=== PATIENT | female | born 1945 | race Caucasian/White ===

== ENCOUNTER 2017-10-16 14:49 | Outpatient (CLI) | payer MEDICARE, BC | END 2017-10-16 14:50 | disposition home or self-care (01) | LOC: BICULT 14:49 | PROVIDERS: ATTEND Internal Medicine Infectious Disease | DX: N39.0 Urinary tract infection, site not specified (principal) | CPT/HCPCS: 76770 ==

== ENCOUNTER 2017-11-21 13:21 | Inpatient (IN) | payer MEDICARE, BC ==
[2017-11-21] MEDS ORDERED: Iopamidol 370 76% 100 ML VIAL ONE (13:48)
--- NOTE | 2017-11-21 14:20 | RAD ---
PORTABLE CHEST: HISTORY: Cough. FINDINGS: Heart size is within normal limits. There are atherosclerotic changes of the aorta. There has been resection of both humeral heads. The partially visualized distal left humerus shows what appear to b e some changes that are incompletely visualized in this area. No signs of failure or infiltrate. IMPRESSION: 1. No active intrathoracic disease. 2. Diffuse bony demineralization. POS: [facility]
[2017-11-21 14:27] LABS: #Lymphocytes 0.2 thou/uL (1.20-3.40); #Monocytes 0.1 thou/uL (0.11-0.59); #Neutrophils 3.9 thou/uL (1.40-6.50); %Basophils 0.5 % (0.0-1.0); %Eosinophils 0.2 % (0.0-10.0); %Lymphocytes 4.4 % (21.0-51.0); %Neutrophils 92.9 % (42.0-75.0); Hemoglobin 12.2 g/dL (12.0-16.0); Mean Corpuscular HGB CONC 32.5 g/dL (32.0-36.0); Mean Corpuscular Hemoglobin 30.8 pg (27.0-31.0); Mean Corpuscular Volume 94.7 fl (81.0-99.0); Mean Platelet Volume 7.5 fL (7.4-10.4); Platelet Count 195 thou/uL (130-400); RBC Distribution Width 13.6 % (11.5-14.5); Red Blood Cell (RBC) Count 3.98 mill/uL (4.20-5.40); White Blood Cell (WBC) Count 4.2 thou/uL (4.8-10.8)
[2017-11-21 14:41] LABS: ALT (SGPT) 160 U/L (8-55); AST (SGOT) 296 U/L (5-34); Albumin 4.1 g/dL (3.4-4.8); Alkaline Phosphatase 238 U/L (40-150); Anion Gap 20 mmol/L (10-20); BUN (Urea Nitrogen) 32 mg/dL (9.8-20.1); Bilirubin, Total 0.5 mg/dL (0.2-1.2); Calc. Creatinine Clearance 0 mL/min (70-130); Calcium 10.5 mg/dL (7.8-10.44); Carbon Dioxide 20 mmol/L (23-31); Chloride 105 mmol/L (98-107); Estimated GFR-MDRD 78; Globulin 3.3 g/dL (2.4-3.5); Glucose 120 mg/dL (83-110); Lipase 15 U/L (8-78); Potassium 4.4 mmol/L (3.5-5.1); Protein, Total 7.4 g/dL (6.0-8.3); Sodium 141 mmol/L (136-145)
[2017-11-21] MEDS ORDERED: Morphine 10 MG/ML VIAL ONE ×2 (15:04→17:03)
--- NOTE | 2017-11-21 15:44 | CT ---
CT ABDOMEN AND PELVIS WITH IV CONTRAST: INDICATIONS: History of weakness and pain all over with a history of rheumatoid arthritis, a decreased appetite, a low grade temperature, and nausea. COMPARISON: Prior exam dated 03/14/2016. FINDINGS: There is mild left basilar atelectasis. No focal hepatic lesion is evident. There is slight prominence of the intrahepatic and extrahepatic biliary ductal system, which is stabl e, without a visible stone. There is a duodenal diverticula seen within the second stage of the duod enum, adjacent to the ampulla of Vater. The visualized aspects of the pancreas demonstrate prominent fatty replacement. This is stable to the prior exam. No pathologically enlarged lymph nodes are ev ident. The adrenal glands appear within normal limits. The kidneys are normal appearing. The splee n is normal appearing. The appendix is normal in the right lower quadrant. Beam scattering artifact from bilateral total hi p replacements slightly limits image detail of the lower pelvis. The visualized aspects of the colon and small bowel appear within normal limits. There are a few sca ttered diverticula involving the colon. There is diffuse osteopenia. There are stable compression abnormalities involving L2 and L3. No acu te osseous abnormality is evident. IMPRESSION: 1. No definite CT explanation for the patient's weakness and abdominal pain. 2. Stable mild intrahepatic and extrahepatic biliary ductal dilatation. No definite stone is eviden t within the dilated common bile duct; however, there is a mildly prominent diverticula seen within t he second stage of the duodenum, adjacent to the ampulla of Vater, which can cause mass effect and ob struct the ampulla. I would recommend correlation with the patient's liver functions and symptoms. A gastroenterology consultation may be helpful. 3. Other details as described above. POS: [facility]
[2017-11-21 15:52] LABS: Troponin I 0.066 ng/mL (< 0.028)
[2017-11-21 15:55] LABS: CKMB 8.2 ng/mL (0-6.6)
[2017-11-21 15:56] LABS: Bilirubin Negative (Negative); Blood, Urine Trace (Negative); Clarity Hazy (Clear); Glucose, Urine (Dipstick) Negative (Negative); Leukocyte Small (Negative); Nitrite Positive (Negative); Protein, Urine (Dipstick) 30 mg/dL (Neg-Trace); Urobilinogen 0.2 mg/dL (0.2-1.0)
[2017-11-21 15:57] LABS: Bacteria/HPF 3+ HPF (None Seen); RBC/HPF 0-3 HPF (0-3)
--- NOTE | 2017-11-21 16:54 | ULT ---
GALLBLADDER ULTRASOUND: HISTORY: Right upper quadrant pain. COMPARISON: CT examination done earlier today. Real-time imaging of the right upper quadrant shows gallbladder slightly contracted. There is mild g allbladder wall thickening and the gallbladder wall measures in the 4 mm range. The common bile duct is dilated at 1.1 cm with some slight intrahepatic ductal dilatation. The visualized liver parenchy ma is unremarkable. The liver measures 15 cm in length. The right kidney is 8 cm and is not obstructed. The pancreas region is partially obscured. IMPRESSION: Suggestion of some mild gallbladder thickening without evidence of gallstones. The extrahepatic duct is dilated at 1.1 cm with perhaps some minimal intrahepatic ductal dilatation seen. The technologis t reports a negative ultrasound Berry's sign. If indicated, gallbladder could be further evaluated with hepatobiliary scan. POS: [facility]
[2017-11-21] MEDS ORDERED: Gentamicin 80 MG/2 ML VIAL ONE (17:10)
[2017-11-21] MEDS ORDERED: Ketorolac Tromethamine 30 MG/ML VIAL ONE (17:27)
[2017-11-21 18:17] LABS: Troponin I 0.073 ng/mL (< 0.028)
[2017-11-21 20:57] LABS: Troponin I 0.078 ng/mL (< 0.028)
[2017-11-21] MEDS ORDERED: Sodium Chloride 0.9% 1,000 ML IV SCH (20:58)
[2017-11-21] MEDS ORDERED: Ondansetron ODT 4 MG TAB PO PRN (22:32)
[2017-11-21] MEDS ORDERED: Ondansetron HCl/PF 4 MG/2 ML Vial IVP PRN (22:32)
[2017-11-21] MEDS ORDERED: ALPRAZolam 0.25 MG TAB PO PRN (22:33)
[2017-11-21] MEDS: HYDROcodone/Acetaminophen 10/325 mg Tablet PO PRN (22:55)
[2017-11-22] MEDS: HYDROcodone/Acetaminophen 10/325 mg Tablet PO PRN ×2 (03:13→20:13)
[2017-11-22] MEDS ORDERED: Ondansetron HCl/PF 4 MG/2 ML Vial IVP PRN (04:43)
[2017-11-22] MEDS ORDERED: Senokot 8.6 MG TAB PO PRN (04:43)
[2017-11-22] MEDS ORDERED: Nitroglycerin 0.4 MG TAB (25 Tab Bottle) PO PRN (04:43)
[2017-11-22] MEDS ORDERED: Ondansetron ODT 4 MG TAB PO PRN (04:43)
[2017-11-22] MEDS ORDERED: Calcium Carbonate 500 MG ChewTAB PO PRN (04:43)
--- NOTE | 2017-11-22 05:17 | HP ---
DATE OF ADMISSION: 11/21/2017 The patient was seen and examined on 11/21/2017. PRIMARY CARE PHYSICIAN: Dr. Munoz. CHIEF COMPLAINT: Generalized weakness. HISTORY OF PRESENT ILLNESS: Patient is a 72-year-old female with advanced rheumatoid arthritis with deformities, presented to the emergency room with generalized weakness. Patient has recently seen Dr Lien Guthrie and was on antibiotics. The last dose of antibiotic was approximately 2 weeks ago. Patient has generalized weakness along with nausea and abdominal discomfort that has been going on fo r the last 5-6 days. She lost her appetite. She also had low grade temperature. She also has a his tory of frequent urinary tract infections. She had intermittent chills; however, denies any fever. No recent travel reported. No significant abdominal discomfort reported. She denies any cough, shor tness of breath or wheezing. In the emergency room, her initial vital signs showed temperature 98.7, respiration of 18, pulse rate of 75 with blood pressure of 93/48 that improved to 124/55. O2 saturation was 95% on room air. She received Toradol, gentamicin, morphine, aspirin, and IV fluids in the emergency room. PAST MEDICAL HISTORY: 1. Advanced rheumatoid arthritis with deformities. 2. Cervical radiculopathy. 3. Dyslipidemia. 4. Urinary incontinence. 5. Hearing loss. PAST SURGICAL HISTORY: 1. Several orthopedic surgeries. 2. Cervical laminectomy. 3. Hematoma evacuation in 2016. ALLERGIES: Patient is allergic to KEFLEX. CURRENT HOME MEDICATIONS: Family to bring accurate list of medications. Patient is currently on pre dnisone 2.5 mg daily. SOCIAL HISTORY: Patient currently lives at home. No alcohol, tobacco or drug use. She makes her ow n decision. She is FULL CODE. FAMILY HISTORY: Mother with irregular heartbeat. Father with lung disease. REVIEW OF SYSTEMS: The following complete review of systems was negative, unless otherwise mentioned in the HPI or below: Constitutional: Weight loss or gain, ability to conduct usual activities. Skin: Rash, itching. Eyes: Double vision, pain. ENT/Mouth: Nose bleeding, neck stiffness, pain, tenderness. Cardiovascular: Palpitations, dyspnea on exertion, orthopnea. Respiratory: Shortness of breath, wheezing, cough, hemoptysis, fever or night sweats. Gastrointestinal: Poor appetite, abdominal pain, heartburn, nausea, vomiting, constipation, or diarr hea. Genitourinary: Urgency, frequency, dysuria, nocturia. Musculoskeletal: Pain, swelling. Neurologic/Psychiatric: Anxiety, depression. Allergy/Immunologic: Skin rash, bleeding tendency. PHYSICAL EXAMINATION: VITAL SIGNS: As discussed above. GENERAL: A 72-year-old female in no significant distress. HEENT: Head atraumatic, normocephalic. Sclerae are anicteric. Moist mucous membranes. No oral les ion. NECK: Supple, no JVD appreciated. No carotid bruit. LUNGS: Clear to auscultation bilaterally. HEART: S1, S2 present. Regular rate and rhythm. No murmur, rubs, or gallops appreciated. ABDOMEN: Soft, minimal tenderness over the suprapubic region, no rebound, guarding, no costovertebra l angle tenderness. EXTREMITIES: No edema or calf tenderness. The patient has chronic deformities from rheumatoid arthr itis. SKIN: Warm and dry. LYMPH NODES: No palpable lymph nodes in the neck. PERIPHERAL VASCULAR: Radial pulses palpable bilaterally. MUSCULOSKELETAL: No joint swelling or tenderness. LYMPH NODES: No palpable lymph nodes in the neck. LABORATORY AND X-RAY FINDINGS: 1. CBC showed WBC 4.2 with hemoglobin 12.2. 2. BUN 32, creatinine 0.73. 3. Total bilirubin 0.5 with AST of 296, ALT of 160. Alkaline phosphatase of 238. Troponin of 0.066 . CK-MB 8.2. Lactic acid was normal. Thyroid studies were normal. Urinalysis showed 7-10 wbc's wi th 3+ bacteria. EKG by my review showed sinus rhythm with right bundle branch block. Chest x-ray by my review was negative for infiltrate. Abdominal ultrasound showed biliary dilatation with extrahepatic duct of 1.1 cm diameter. Berry sig n was negative. CT scan of the abdomen and pelvis showed mild intrahepatic and extrahepatic biliary ductal dilatation without any definite stone. IMPRESSION: 1. Generalized weakness with nausea, abdominal discomfort and poor appetite, multifactorial. 2. Abnormal liver function tests of unclear etiology. The patient has extrahepatic and intrahepatic biliary ductal dilatation. 3. Suspected urinary tract infection. 4. Severe rheumatoid arthritis with deformities on chronic steroids. 5. Chronically elevated troponins. 6. Chronic kidney disease stage 2. 7. Chronic urinary incontinence. 8. Hearing loss. 9. Cervical radiculopathy. 10. Dyslipidemia. PLAN: The patient is currently admitted on the telemetry unit. Infectious Disease and GI will be co nsulted. The patient will be kept n.p.o. except for ice chips and sips of water. Empiric antibiotic s for UTI will be started. We will hold Tylenol due to abnormal liver function tests. Gentle intrav enous hydration. Resume selected home medications once confirmed. A.m. labs. Plan of care was discussed with the patient in detail. She stated understanding.
[2017-11-22] MEDS: Sodium Chloride 0.9% 1,000 ML IV SCH ×2 (05:35→09:00)
[2017-11-22] MEDS ORDERED: predniSONE 5 MG TAB PO SCH (08:00)
[2017-11-22] MEDS: TROSPIUM 20 MG TABLET PO SCH ×2 (08:57→20:14)
[2017-11-22] MEDS: Docusate 100 MG CAP PO SCH ×2 (08:57→20:13)
[2017-11-22] MEDS: Heparin 5,000 UNITS/ML VIAL SC SCH ×2 (08:57→20:12)
[2017-11-22] MEDS: Multivit, Therapeutic 1 TAB PO SCH (08:57)
[2017-11-22] MEDS: Famotidine 20 MG TAB PO SCH ×2 (08:57→20:14)
--- NOTE | 2017-11-22 14:17 | PDOC.PN ---
- Subjective Encounter Start Date: 11/22/17 Encounter Start Time: 14:10 Subjective: f/u for generalized weakness, UTI with Proteus spp. Feels weak and tired -: and sleeping most of the day. - Objective Resuscitation Status: Resuscitation Status FULL:Full Resuscitation MAR Reviewed: Yes Vital Signs & Weight: Vital Signs (12 hours) Temp Pulse Resp BP Pulse Ox 11/22/17 12:19 99.8 F H 84 16 103/51 L 93 L 11/22/17 07:47 99.0 F 85 16 125/58 L 98 11/22/17 04:43 92 L 11/22/17 04:00 98.7 F 80 18 117/57 L 92 L Weight Admit Weight 95 lb 1.6 oz Weight 97 lb I&O: 11/21/17 11/22/17 11/23/17 06:59 06:59 07:59 Intake Total 970 Balance 970 Result Diagrams: 11/21/17 14:17 11/21/17 14:17 Additional Labs: Microbiology 11/21/17 15:41 Urine Straight Catheter Urine Culture - Preliminary Proteus species Laboratory Tests 11/21/17 11/21/17 11/21/17 14:17 14:17 14:32 Lactic Acid 1.4 AST 296 H ALT 160 H Alkaline Phosphatase 238 H Troponin I 0.066 H Lipase 15 11/21/17 11/21/17 17:45 20:19 Lactic Acid AST ALT Alkaline Phosphatase Troponin I 0.073 H 0.078 H Lipase Radiology Reviewed by me: Yes (CT abd/pel - extra/intrahepatic biliary diliation ) EKG Reviewed by me: Yes (Tele - SR in 80's) Phys Exam - Physical Examination sleepy, answers questions, tired appearing HEENT: PERRLA, oral pharynx no lesions Neck: no JVD, supple Respiratory: no wheezing, clear to auscultation bilateral Cardiovascular: RRR Gastrointestinal: soft, non-tender, no distention, positive bowel sounds severe joint deformities consistent with RA Musculoskeletal: no edema, pulses present Neurological: normal sensation, moves all 4 limbs Psychiatric: A&O x 3 Skin: normal turgor, cap refill <2 seconds Dx/Plan (1) Urinary tract infection due to Proteus Code(s): N39.0 - URINARY TRACT INFECTION, SITE NOT SPECIFIED; B96.4 - PROTEUS ( MIRABILIS) (MORGANII) CAUSING DIS CLASSD ELSWHR Status: Acute Comment: Start Levaquin 500mg IV daily, await final sensitivities from Ucx (2) Generalized weakness Code(s): R53.1 - WEAKNESS Status: Chronic Comment: Likely multifactorial including #1, PT/OT evaluation (3) Physical deconditioning Code(s): R53.81 - OTHER MALAISE Status: Chronic Comment: See above (4) Rheumatoid arthritis Code(s): M06.9 - RHEUMATOID ARTHRITIS, UNSPECIFIED Status: Chronic Qualifiers: Laterality: bilateral Comment: Continue Prednisone, Plaquenil (5) Transaminitis Code(s): R74.0 - NONSPEC ELEV OF LEVELS OF TRANSAMNS & LACTIC ACID DEHYDRGNSE Status: Acute Comment: Etiology unclear, CT abd/pel unrevealing as to source, serial monitoring, GI consulted, ? ERCP - Plan continue antibiotics, PT/OT, child welfare social worker, out of bed/ambulate, DVT proph w/ SCDs Stable overall -: Start Zosyn 2.25gm IV q6h -: Resume Plaquenil -: PT for mobilization and functional assessment -: AM lab: CMP, CBC, Mg++, PO3, Lipase * Solumedrol 20mg IV q6h
[2017-11-22] MEDS: Piperacillin/Tazobactam 2.25 GM in Sodium Chloride 0.9% 100 ML IVPB SCH (16:48)
[2017-11-22 17:51] LABS: Acetaminophen Less than 6.0 mcg/mL (10.0-30.0)
--- NOTE | 2017-11-22 19:21 | CON ---
DATE OF CONSULTATION: 11/22/2017 REASON FOR CONSULTATION: Abdominal pain, nausea, diarrhea and body aches. HISTORY OF PRESENT ILLNESS: A 72-year-old patient who has a history of severe rheumatoid arthritis, previously on prednisone, Plaquenil and tramadol whom I have seen in the past for recurrent urinary tract infections/cystitis. I have treated her in the past and it was not very clear to me that the symptoms are truly related to an invasive UTI, although she did have dysuria from time to time. We had discussed measures to try to prevent the recurrence of cystitis in the past. She had completed a course of ampicillin in October. She had been in her usual state with quite a bit of functional impairment because of her multiple areas of joint deformities associated with severe rheumatoid arthritis, but otherwise in her usual state until about a week before today or approximately 5-6 days before admission when she developed diarrhea and general malaise. She also has been complaining of pain in the knee area, left side, left elbow and had been taken Tylenol for management of pain. She usually takes extra strength Tylenol 2 capsules or tablets every 6 hours sometimes or sometimes more often than that. She was brought to the emergency room with general weakness, some headaches. No visual symptoms, sore throat, odynophagia , or dysphagia. Vomiting has subsided. No bleeding. Some sputum, but no production. She has abdominal pain, mostly in the mid abdominal area. No dysuria or frequency. No neurological symptoms. PAST MEDICAL AND SURGICAL HISTORY: Rheumatoid arthritis, which is severe with multiple areas of deformities, multiple joint replacements, radiculopathy, dyslipidemia, urinary incontinence, history of urinary tract infections with cystitis in the past. ALLERGIES: KEFLEX with rash. CURRENT MEDICATIONS LIST: Acetaminophen, Floranex, Xanax, calcium, vitamin D, Colace, Pepcid, Plaquenil, Solu-Medrol, ondansetron and Zosyn. SOCIAL HISTORY: Lives with , never smoker. FAMILY HISTORY: Noncontributory. PHYSICAL EXAMINATION: VITAL SIGNS: T-max 100.5 just recently, blood pressure 120/70, pulse 85, respirations 16 and O2 sat 95%. SKIN: With a small area of ulceration in the presacral region. Peripheral IV access. No Schaeffer catheter. No lymphadenopathy. HEENT: Ocular movements conjugate. Oral cavity with still quite a few teeth in place with some decay. Moist mucosa. NECK: Stiff neck to all directions from previous cervical surgeries. LUNGS: She has symmetric lung breath sounds. No crackles or wheezing. HEART: S1 and S2, regular rate. No S3 or S4. ABDOMEN: Not distended. Mild to moderate tenderness in the epigastric area and right upper quadrant and periumbilical region. No bladder distention. EXTREMITIES: She has multiple joint deformities, weakness in upper and lower extremities. The finger deformities are very pronounced. She pretty much does not have any function with the hands. The knees have been replaced in the past and she has tenderness in the left side. The feet are quite severely deformed as well. There is quite pronounced atrophy of musculature both upper and lower extremities. NEUROLOGIC: She has hearing impairments, but she is able to understand. She is oriented and follows commands. LABORATORY DATA: White blood cell count is 4.2, hemoglobin is 12, platelets 195 and 92% neutrophils. Sodium 141, creatinine 0.73, glucose 120, AST 296, ALT 160 and alkaline phosphatase 238. Troponin 0.066 and then was 0.073 and albumin 4.1. Urinalysis with 7-10 wbc's and 30 protein. Microbiology with Proteus species, which is similar to the one she has had in 09/30. IMAGING STUDIES: Included abdomen and pelvis CT from 11/21, which showed a slight prominence of the intrahepatic and extrahepatic biliary ductal system, duodenal diverticula seen within the second stage of the duodenum, diffuse osteopenia. There is an abdomen ultrasound, which showed mild gallbladder thickening. No gallstones. The extrahepatic duct is dilated to 1.1 cm and there is a chest x-ray from admission with no active intrathoracic disease. ASSESSMENT: 1. Severe rheumatoid arthritis. 2. Recurrent positive cultures, mostly associated with symptoms of cystitis, urethritis in the past. 3. Diarrhea, associated with vomiting and abdominal tenderness in the mid abdominal area, right upper quadrant. 4. Abnormal liver function tests. 5. Chronic intake of acetaminophen in fairly high doses. 6. Mild dilatation of the biliary ducts. DISCUSSION: The differential diagnosis includes acetaminophen associated hepatotoxicity, which in her case would be more of a chronic type. She has been taken up to 5 or 6 grams consistently on a daily basis and she is quite small for her body mass. This could potentially be a hepatotoxic chronic dosing of acetaminophen. The other possibility would be transient biliary obstructions as mentioned in the radiologist interpretation. Acute cholecystitis is much less likely. Finally, an invasive urinary tract infection is less likely the culprit here and I would recommend discontinuation of antimicrobial therapy. I certainly would withhold all products containing acetaminophen at this point in time and check her acetaminophen levels and evaluate according to the nomogram. Check hepatitis serology, but that is probably going to turned out negative. MTDD
[2017-11-22] MEDS: Ibuprofen 200 MG TAB PO PRN (20:12)
[2017-11-22] MEDS: ALPRAZolam 0.25 MG TAB PO PRN (20:13)
[2017-11-22] MEDS ORDERED: Non-Formulary Item 1 EACH (Biotin [Biotin] 5,000 MCG) PO SCH (21:00)
[2017-11-22] MEDS ORDERED: BIOTIN 5000 MCG PO SCH (21:00)
[2017-11-23] MEDS: Sodium Chloride 0.9% 1,000 ML IV SCH ×2 (00:29→11:51)
[2017-11-23] MEDS: Piperacillin/Tazobactam 2.25 GM in Sodium Chloride 0.9% 100 ML IVPB SCH ×2 (00:29→10:01)
--- NOTE | 2017-11-23 00:55 | CON ---
DATE OF CONSULTATION: 11/22/2017 REFERRING PHYSICIAN: Dr. Maged Riley. REASON FOR CONSULTATION: Abnormal LFTs, vague abdominal pain. HISTORY OF PRESENT ILLNESS: Ms. Ayde Jauregui is a very fragile looking, thin-built female hospitalized with generalized weakness, chills off and on over the last several days, and also histor y of diarrhea. The patient came to the ER and was found to have abnormal LFTs on admission. The pat ient was getting some vague abdominal pain off and on. Although, she has a history of chills, she puri s had no fever. The patient had seen Dr. Francisco Guthrie in 09/2017 and also 10/2017. She was found t o have urinary tract infection and was given 30 days of antibiotics. She finished taking her antibio tics on 11/08. The patient has been feeling poorly over the last probably about several days. She c omplains of generalized weakness and nausea and some vague abdominal discomfort. The abdominal pain is actually mild to moderate. It is not severe. Today, she is feeling better. She also had diarrhe a for a couple of days. The diarrhea has quit now. On admission, the patient was found to have elev ated liver function tests. The AST is 296, ALT 160, alkaline phosphatase is 238. She had abdominal sonogram and abdominal CAT scan. The abdominal sonogram shows no gallstones and does show dilation o f the CBD to about 1.1 cm. Abdominal CAT scan also showed dilation of the common bile duct without a ny pancreatic mass or any filling defect in the common bile duct. There is mention of a duodenal div erticulum on review of the ampulla on CAT scan. The patient had seen Dr. Mcfarlane in the past and also has seen Dr. Harrison in the past. When she was hospitalized in 2016, she was seen by Dr. Mcfarlane to co nfirm pancreatitis. The workup for the etiology of the pancreatitis is unclear. She had an abdomina l sonogram, which is negative for gallstones. She had an abdominal CAT scan, which is negative. She also had an MRI, which was negative for any pathology. There is no common bile duct stone. As per Dr. Mcfarlane' note, there is a mention of getting an outpatient endosonography. Her regular gastroente rologist is Dr. Debora Harrison, and Dr. Harrison sent her to [place] for evaluation. However, the doctor who saw her in [place] did not recommend an endosonography. She was told that she could have ischem ic bowel. At that time, she was having persistent diarrhea and was placed on Imodium 2.5 mg twice a day. On Imodium, her diarrhea actually stopped and she started eating better and gained her weight b ack. The pain what she is having is not as bad as she had pancreatitis. She says the pain was very severe during pancreatitis, but this pain is actually mild. Since admission, the patient has had no stool. She also has past history of C. diff diarrhea, I believe in 2014, as per the patient. She puri s no relevant history. ALLERGIES: KEFLEX. MEDICAL ILLNESSES: 1. Advanced rheumatoid arthritis deformities. 2. Cervical radiculopathy. 3. Hyperlipidemia. 4. Urinary incontinence. 5. Hearing loss. 6. Clostridium difficile diarrhea, I believe, 2-3 years ago. 7. History of pancreatitis of unknown etiology in 2016. 8. History of recurrent urinary tract infection. PAST SURGICAL HISTORY: 1. History of cervical laminectomy. 2. Hematoma evacuation in the leg. 3. Several orthopedic surgeries. MEDICATIONS: Include hydrocodone, Xanax, calcium carbonate, vitamin D3, docusate, famotidine, Plaque nil, methylprednisolone at the present time in the hospital, piperacillin in the hospital. SOCIAL HISTORY: The patient is alone. She does not smoke or drink alcohol. FAMILY HISTORY: Mother with heart disease, father with lung disease. REVIEW OF SYSTEMS: A 10-point system review. Constitutional: Poor appetite. History of chills off and on, generalized weakness. Respiratory: No history of chronic cough, hemoptysis, dyspnea. Card iovascular: No chest pain, no palpitation, no dyspnea or orthopnea. Gastrointestinal: History of a bdominal pain, poor appetite, nausea, and also diarrhea, which has resolved. Genitourinary: No dysu rosalinda, hematuria. Musculoskeletal: Diffuse body pains and also back pain and arthralgias. Neuropsych iatric: History of anxiety and depression. PHYSICAL EXAMINATION: GENERAL: Reveals a fragile looking, thin-built white female, who appears very comfortable, but she i s kind of drowsy and sleepy. However, she says she is hungry and she wants to eat. VITAL SIGNS: Afebrile on admission 99.8 degrees Fahrenheit. Today, the temperature 99.8 degrees Fah renheit, pulse is 84, blood pressure is 103/57. HEENT: Conjunctivae clear. NECK: Supple. No adenitis or thyromegaly noted. CARDIOVASCULAR: First and second heart sounds normal. LUNGS: Clear to auscultation. ABDOMEN: Abdomen is soft. Abdomen is nondistended. Abdomen is mildly tender over the . There is no rebound or guarding. No organomegaly or masses. EXTREMITIES: Reveal deformities of both upper extremities and also foot. LABORATORY DATA: Sodium 141, potassium 4.4, chloride 105, bicarbonate 20, BUN is 32, creatinine 0.73 , glucose 120, calcium 10.5, bilirubin 0.5, AST 296, ALT 160, alkaline phosphatase 238. CPK-MB 8.2. Troponin 0.066. An abdominal sonogram shows dilation of CBD and also same thing with the CAT scan. There are no liver masses seen. There are no definite filling defects in the common bile duct. CLINICAL IMPRESSION: A 72-year-old female with longstanding rheumatoid arthritis, on Plaqu enil and prednisone who comes in with generalized weakness, poor appetite, vague abdominal pain, naus ea, and also diarrhea. Her diarrhea is resolved at the present time. Her nausea is also markedly im proved. Her abdominal pain is very mild and is poorly localized. The abdominal exam is very benign. Workup has been negative. The sonogram shows no gallstones and also CT scan shows no gallstones. Does show dilation of CBD. No pancreatic mass seen. Her liver function tests are elevated to AST of 296, alkaline phosphatase is 238. Possibilities include infectious pathology to account for the alok sea, vague abdominal pain, diarrhea, and also poor appetite. Had abnormal LFTs, which are unclear as workup has been basically negative. Possibilities considered include drug induced liver disease and possibly she passed a common bile duct stone, which could account for dilation of CBD and also eleva jeramy LFTs. RECOMMENDATIONS: As follows, 1. Regular diet. 2. Repeat LFTs to see how the trend is. If the LFTs is going up, I believe probably she will need a n ERCP. She has a very short neck and also her neck movement is very limited. I am not sure if ERCP would be possible. She also has a duodenal diverticulum, which makes the ERCP more technically diff icult. Regular diet. Follow LFTs. If LFTs are trending down, no further need for ERCP. If the LFTs is goi ng up, we may consider endosonography and possibly ERCP. Dr. Mcfarlane has seen the patient before and he will assume care from Friday.
[2017-11-23] MEDS: HYDROcodone/Acetaminophen 10/325 mg Tablet PO PRN ×2 (05:29→20:56)
[2017-11-23 05:42] LABS: #Lymphocytes 0.4 thou/uL (1.20-3.40); #Monocytes 0.1 thou/uL (0.11-0.59); #Neutrophils 2.6 thou/uL (1.40-6.50); %Basophils 1.1 % (0.0-1.0); %Eosinophils 0.2 % (0.0-10.0); %Lymphocytes 13.6 % (21.0-51.0); %Monocytes 3.9 % (0.0-10.0); %Neutrophils 81.3 % (42.0-75.0); Mean Corpuscular HGB CONC 32.4 g/dL (32.0-36.0); Mean Corpuscular Hemoglobin 32.4 pg (27.0-31.0); Mean Platelet Volume 7.8 fL (7.4-10.4); Platelet Count 179 thou/uL (130-400); RBC Distribution Width 13.1 % (11.5-14.5); Red Blood Cell (RBC) Count 3.09 mill/uL (4.20-5.40); White Blood Cell (WBC) Count 3.2 thou/uL (4.8-10.8)
[2017-11-23 05:50] LABS: ALT (SGPT) 124 U/L (8-55); AST (SGOT) 223 U/L (5-34); Albumin 2.7 g/dL (3.4-4.8); Alkaline Phosphatase 525 U/L (40-150); Anion Gap 14 mmol/L (10-20); BUN (Urea Nitrogen) 22 mg/dL (9.8-20.1); Bilirubin, Total 0.7 mg/dL (0.2-1.2); Calc. Creatinine Clearance 65 mL/min (70-130); Calcium 7.8 mg/dL (7.8-10.44); Carbon Dioxide 16 mmol/L (23-31); Chloride 109 mmol/L (98-107); Estimated GFR-MDRD Greater than 90; Globulin 2.2 g/dL (2.4-3.5); Glucose 98 mg/dL (83-110); Lipase 5 U/L (8-78); Magnesium 1.4 mg/dL (1.6-2.6); Potassium 4.4 mmol/L (3.5-5.1); Protein, Total 4.9 g/dL (6.0-8.3); Sodium 135 mmol/L (136-145)
[2017-11-23 05:52] LABS: ALT (SGPT) 125 U/L (8-55); AST (SGOT) 225 U/L (5-34); Albumin 2.7 g/dL (3.4-4.8); Alkaline Phosphatase 521 U/L (40-150); Bilirubin, Direct 0.5 mg/dL (0.1-0.3); Bilirubin, Total 0.7 mg/dL (0.2-1.2); Protein, Total 4.9 g/dL (6.0-8.3)
[2017-11-23] MEDS ORDERED: Prevnar 13-Val Conj/PF 0.5 ML SYRINGE IM ONE (09:00)
[2017-11-23] MEDS ORDERED: Non-Formulary Item 1 EACH (Cholecalciferol (Vitamin D3) [Vitamin D3] 5,000 UNIT) PO SCH (09:00)
[2017-11-23] MEDS ORDERED: Non-Formulary Item 1 EACH (Lactobacillus Acidophilus [Probiotic] 1 CAPSULE) PO SCH (09:00)
[2017-11-23] MEDS ORDERED: FLU VACC TS2017-18 (>65YR) 0.5 ML SYRINGE IM ONE (09:00)
[2017-11-23] MEDS: Floranex Packet PO SCH (09:59)
[2017-11-23] MEDS: Multivit, Therapeutic 1 TAB PO SCH (10:01)
[2017-11-23] MEDS: Hydroxychloroquine Sulfate 200 MG TAB PO SCH (10:01)
[2017-11-23] MEDS: Famotidine 20 MG TAB PO SCH ×2 (10:01→20:57)
[2017-11-23] MEDS: Docusate 100 MG CAP PO SCH ×2 (10:01→20:57)
[2017-11-23] MEDS: Heparin 5,000 UNITS/ML VIAL SC SCH ×2 (10:02→21:15)
[2017-11-23] MEDS: TROSPIUM 20 MG TABLET PO SCH ×2 (10:03→20:57)
[2017-11-23] MEDS: Ibuprofen 200 MG TAB PO PRN (11:51)
[2017-11-23] MEDS ORDERED: Lorazepam 2 MG/ML VIAL SLOW IVP SCH (12:15)
--- NOTE | 2017-11-23 13:18 | PRG ---
DATE OF SERVICE: 11/23/2017 FOLLOWUP VISIT NOTE SUBJECTIVE: Ms. Ayde Jauregui is a very pleasant 72-year-old female with longstanding rheum atoid arthritis. She also has generalized body pains and also vague abdominal pain, nausea, and abno rmal LFTs. Abdominal sonogram shows dilation of CBD and also potassium findings. The patient is fee ling better today. She still complains of generalized body pain. Her abdominal pain is less. There is no nausea today. She is tolerating diet well. Her repeat LFTs remain the same, nothing much imani lly has changed. The LFTs are cholestatic. The patient has had pancreatitis two years ago and has h ad a negative abdominal sonogram, negative CAT scan and MRI at that time. PHYSICAL EXAMINATION: GENERAL: Appears comfortable. She is afebrile. VITAL SIGNS: Temperature 98.6 degrees Fahrenheit, but yesterday she had fever of 100.6, pulse is 80, blood pressure 160/95. CARDIOVASCULAR SYSTEM: First and second heart sounds normal. LUNGS: Clear to auscultation. ABDOMEN: Soft to palpate. Abdomen is minimally tender over the epigastric periumbilical area. LABORATORY DATA: Laboratory data from today nothing has really changed in terms of numbers. AST is 225, ALT 125, alkaline phosphatase 521. Bilirubin 0.5. Her serum level has come back normal. RECOMMENDATIONS: 1. Obtain ABY. 2. MRCP today. MRCP did show shows abnormal findings like bile duct stone, may need ERCP.
--- NOTE | 2017-11-23 13:58 | PDOC.PN ---
- Subjective Encounter Start Date: 11/23/17 Encounter Start Time: 13:50 Subjective: f/u for UTI with Proteus spp on Zosyn. Intermittent fever spikes noted. -: LFT's remain elevated with MRCP pending. States feeling better today. -: No emesis. Still weak. - Objective Resuscitation Status: Resuscitation Status FULL:Full Resuscitation MAR Reviewed: Yes Vital Signs & Weight: Vital Signs (12 hours) Temp Pulse Resp BP Pulse Ox 11/23/17 13:00 97.2 F L 78 16 116/56 L 99 11/23/17 07:45 98.6 F 80 16 160/95 H 100 11/23/17 05:37 97.4 F L 81 18 132/63 98 Weight Admit Weight 95 lb 1.6 oz Weight 97 lb I&O: 11/22/17 11/23/17 11/24/17 05:59 06:59 06:59 Intake Total Balance Result Diagrams: 11/23/17 05:06 11/23/17 05:06 Additional Labs: Microbiology 11/21/17 15:41 Urine Straight Catheter Urine Culture - Preliminary Proteus species Laboratory Tests 11/21/17 11/21/17 11/21/17 14:17 14:17 14:32 Lactic Acid 1.4 Total Bilirubin 0.5 AST 296 H ALT 160 H Alkaline Phosphatase 238 H Troponin I 0.066 H Lipase 15 11/21/17 11/21/17 11/23/17 17:45 20:19 05:06 Lactic Acid Total Bilirubin 0.7 AST 223 H ALT 124 H Alkaline Phosphatase 525 H Troponin I 0.073 H 0.078 H Lipase 11/23/17 05:06 Lactic Acid Total Bilirubin 0.7 AST 225 H ALT 125 H Alkaline Phosphatase 521 H Troponin I Lipase Radiology Reviewed by me: Yes (MRI abd - pending) EKG Reviewed by me: Yes (Tele - SR in 's) Phys Exam - Physical Examination Constitutional: NAD HEENT: PERRLA, oral pharynx no lesions Neck: no JVD, supple Respiratory: no wheezing, clear to auscultation bilateral Cardiovascular: RRR mild TTP in mid-epigastric region Gastrointestinal: soft, no distention, positive bowel sounds severe joint deformities consisitent with RA Musculoskeletal: pulses present, edema present Neurological: normal sensation, moves all 4 limbs Psychiatric: A&O x 3 Skin: normal turgor, cap refill <2 seconds Dx/Plan (1) Transaminitis Code(s): R74.0 - NONSPEC ELEV OF LEVELS OF TRANSAMNS & LACTIC ACID DEHYDRGNSE Status: Acute Comment: Etiology unclear, CT abd/pel unrevealing as to source, serial monitoring, GI consulted, ? ERCP, MRI abd pending (2) Urinary tract infection due to Proteus Code(s): N39.0 - URINARY TRACT INFECTION, SITE NOT SPECIFIED; B96.4 - PROTEUS ( MIRABILIS) (MORGANII) CAUSING DIS CLASSD ELSWHR Status: Acute Comment: continue Zosyn 3.375gm IV q6h, continue IVF's (3) Generalized weakness Code(s): R53.1 - WEAKNESS Status: Chronic Comment: Likely multifactorial including #1, PT/OT evaluation (4) Physical deconditioning Code(s): R53.81 - OTHER MALAISE Status: Chronic Comment: See above (5) Rheumatoid arthritis Code(s): M06.9 - RHEUMATOID ARTHRITIS, UNSPECIFIED Status: Chronic Qualifiers: Laterality: bilateral Comment: Continue Prednisone, Plaquenil - Plan plan discussed w/ family, continue antibiotics, DVT proph w/SCDs Stable overall -: Continue Zosyn 3.375gm IV q6h -: Continue IV NS 70ml/h -: continue Solumedrol 20mg IV q6h -: AM lab: CMP, CBC * .
--- NOTE | 2017-11-23 16:47 | MRI ---
MRI ABDOMEN WITHOUT CONTRAST: History: Abnormal liver profile. FINDINGS: Correlation is made with an ultrasound and CT scan of the abdomen dated 11-21-17. The exam is limited due to motion artifact. There is biliary ductal dilatation of the distal common bile duct measuring about 1 cm. There are a c ouple of filling defects in the common bile duct, suspicious for choledocholithiasis. No cholelithias is is seen. There is edema/fluid surrounding the gallbladder. The spleen, pancreas, adrenal gland, an d kidneys are unremarkable. There is fluid in the Lombardi's pouch. The bone marrow signal is normal. There is consolidation/atelectatic change in the lung bases. IMPRESSION: 1. Biliary duct dilatation with probable choledocholithiasis. 2. Findings suspicious for acute cholecystitis. Above findings were discussed over the telephone with Dr. Alka Hodges at 4:13 p.m. Colleen LUNA POS: [facility]
[2017-11-23] MEDS: Piperacillin/Tazobactam 3.375 GM in Sodium Chloride 0.9% 100 ML IVPB SCH (16:52)
[2017-11-23] MEDS: ALPRAZolam 0.25 MG TAB PO PRN (20:56)
[2017-11-24] MEDS: Piperacillin/Tazobactam 3.375 GM in Sodium Chloride 0.9% 100 ML IVPB SCH ×4 (00:33→23:27)
[2017-11-24] MEDS: Sodium Chloride 0.9% 1,000 ML IV SCH ×2 (02:00→08:25)
[2017-11-24] MEDS: HYDROcodone/Acetaminophen 10/325 mg Tablet PO PRN ×5 (05:03→21:59)
[2017-11-24 05:35] LABS: #Lymphocytes 0.7 thou/uL (1.20-3.40); #Monocytes 0.3 thou/uL (0.11-0.59); %Basophils 0.3 % (0.0-1.0); %Eosinophils 0.1 % (0.0-10.0); %Lymphocytes 8.4 % (21.0-51.0); %Monocytes 3.9 % (0.0-10.0); %Neutrophils 87.4 % (42.0-75.0); Mean Corpuscular HGB CONC 31.5 g/dL (32.0-36.0); Mean Corpuscular Hemoglobin 31.1 pg (27.0-31.0); Mean Corpuscular Volume 98.6 fl (81.0-99.0); Mean Platelet Volume 7.4 fL (7.4-10.4); Platelet Count 241 thou/uL (130-400); RBC Distribution Width 13.3 % (11.5-14.5); Red Blood Cell (RBC) Count 3.54 mill/uL (4.20-5.40)
[2017-11-24 06:04] LABS: ALT (SGPT) 130 U/L (8-55); AST (SGOT) 193 U/L (5-34); Alkaline Phosphatase 507 U/L (40-150); Anion Gap 14 mmol/L (10-20); BUN (Urea Nitrogen) 19 mg/dL (9.8-20.1); Bilirubin, Total 0.5 mg/dL (0.2-1.2); Calc. Creatinine Clearance 67 mL/min (70-130); Calcium 8.4 mg/dL (7.8-10.44); Carbon Dioxide 15 mmol/L (23-31); Chloride 110 mmol/L (98-107); Estimated GFR-MDRD Greater than 90; Globulin 2.5 g/dL (2.4-3.5); Glucose 113 mg/dL (83-110); Potassium 4.3 mmol/L (3.5-5.1); Protein, Total 5.5 g/dL (6.0-8.3); Sodium 135 mmol/L (136-145)
[2017-11-24] MEDS: Floranex Packet PO SCH (08:27)
[2017-11-24] MEDS: Heparin 5,000 UNITS/ML VIAL SC SCH ×2 (08:27→21:29)
[2017-11-24] MEDS: Docusate 100 MG CAP PO SCH ×2 (08:28→21:55)
[2017-11-24] MEDS: Hydroxychloroquine Sulfate 200 MG TAB PO SCH (08:28)
[2017-11-24] MEDS: TROSPIUM 20 MG TABLET PO SCH (08:28)
[2017-11-24] MEDS: Multivit, Therapeutic 1 TAB PO SCH (08:28)
[2017-11-24] MEDS: Famotidine 20 MG TAB PO SCH ×2 (08:28→21:55)
--- NOTE | 2017-11-24 08:54 | PDOC.PN ---
- Subjective Encounter Start Date: 11/24/17 Encounter Start Time: 08:52 Subjective: alert, no complaints - Objective Resuscitation Status: Resuscitation Status FULL:Full Resuscitation MAR Reviewed: Yes Vital Signs & Weight: Vital Signs (12 hours) Temp Pulse Resp BP Pulse Ox 11/24/17 06:30 94 L 11/24/17 05:00 98.7 F 97 18 156/74 H 94 L Weight Admit Weight 95 lb 1.6 oz Weight 104 lb 4.8 oz I&O: 11/23/17 11/24/17 11/25/17 06:59 06:59 06:59 Intake Total 1180 Balance 1180 Result Diagrams: 11/24/17 05:26 11/24/17 05:26 Phys Exam - Physical Examination Neck: no JVD Respiratory: clear to auscultation bilateral Cardiovascular: RRR, no significant murmur Gastrointestinal: soft, non-tender, positive bowel sounds Musculoskeletal: edema present Dx/Plan (1) Urinary tract infection due to Proteus Code(s): N39.0 - URINARY TRACT INFECTION, SITE NOT SPECIFIED; B96.4 - PROTEUS ( MIRABILIS) (MORGANII) CAUSING DIS CLASSD ELSWHR Status: Acute Comment: continue Zosyn 3.375gm IV q6h, continue IVF's (2) Nausea & vomiting Code(s): R11.2 - NAUSEA WITH VOMITING, UNSPECIFIED Status: Acute (3) Transaminitis Code(s): R74.0 - NONSPEC ELEV OF LEVELS OF TRANSAMNS & LACTIC ACID DEHYDRGNSE Status: Acute Comment: Etiology unclear, CT abd/pel unrevealing as to source, serial monitoring, GI consulted, ? ERCP, MRI abd pending (4) Adrenal insufficiency Code(s): E27.40 - UNSPECIFIED ADRENOCORTICAL INSUFFICIENCY Status: Chronic (5) Dyslipidemia Code(s): E78.5 - HYPERLIPIDEMIA, UNSPECIFIED Status: Chronic (6) Generalized weakness Code(s): R53.1 - WEAKNESS Status: Chronic Comment: Likely multifactorial including #1, PT/OT evaluation (7) Physical deconditioning Code(s): R53.81 - OTHER MALAISE Status: Chronic Comment: See above (8) Rheumatoid arteritis Code(s): I00 - RHEUMATIC FEVER WITHOUT HEART INVOLVEMENT Status: Chronic - Plan cont iv antibx, -: ERCP planned today * .
--- NOTE | 2017-11-24 13:31 | CON ---
DATE OF CONSULTATION: 11/24/2017 CHIEF COMPLAINT: Weakness. HISTORY: This is a 72-year-old female who has severe rheumatoid arthritis on steroids, who was admit jeramy for weakness and neck pain. She does have intermittent abdominal pain. Two years ago she was fo und to have a dilated common bile duct. She was referred to either [facility] or [facility] where they were unable to do the ERCP due to her inability to open her mouth wide, so they have just been watching h er. PAST MEDICAL HISTORY: Significant for ischemic colitis, rheumatoid arthritis, cervical radiculopathy , hyperlipidemia, stress urinary incontinence. PAST SURGICAL HISTORY: She has had multiple orthopedic surgeries and cervical laminectomy. MEDICATIONS: Xanax, Tums, vitamin D, Colace, Pepcid, hydrocodone, hydroxychloroquine, ibuprofen, Ati van, methylprednisolone, multivitamins, nitroglycerin, Zofran, Zosyn, Senokot and trospium. ALLERGIES: She has an allergy to KEFLEX. SOCIAL HISTORY: She lives at home. No tobacco or alcohol. FAMILY HISTORY: Lung disease. PHYSICAL EXAMINATION: VITAL SIGNS: Temperature 97.2, pulse 81, blood pressure 129/60. GENERAL: Her body is a contorted and has been severely affected by the rheumatoid arthritis. She is unable to move her joints well. LUNGS: Clear. HEART: Regular rate and rhythm. ABDOMEN: Soft, very minimal tenderness. EXTREMITIES: Very affected by the rheumatoid. LABORATORY AND X-RAY FINDINGS: Her white count is 8, H&H 11 and 34, platelet count 241. Her electro lytes show sodium 135, chloride 110, CO2 15, creatinine 0.5, glucose of 113. Her AST is 193, ALT 130 , alkaline phosphatase 507. Bilirubin is 0.5, lipase was 5. She had a CT scan showing a duodenal di verticulum, some stable mild ductal dilatation. Ultrasound showed some mild gallbladder wall thicken ing, no gallstones, no Berry sign. MRCP showed questionable filling defects at the ampulla consiste nt with a common duct stone. ASSESSMENT: 1. Severe rheumatoid arthritis on steroids. 2. Chronic biliary dilatation. PLAN: I will have to leave this up to Dr. Cruz and decide if they are wanting to attempt another ERC P or refer her.
[2017-11-24 14:39] LABS: ANA Symphony (Qualitative) Negative (Negative); ANA Symphony (Quantitative) Less than 0.07 Ratio (<0.7 Negative); dsDNA IgG Antibody 0.9 IU/mL (<10 Negative)
[2017-11-24] MEDS ORDERED: Iothalamate Meglumine 60% 50 ML VIAL FS ONE (14:41)
--- NOTE | 2017-11-24 15:07 | PRG ---
DATE OF SERVICE: 11/24/2017 SUBJECTIVE: Ayde Jauregui is a very fragile looking, elderly female hospitalized with fever, some abd ominal pain, generalized arthralgias, and myalgias. She had an abdominal CAT scan and abdominal sono gram shows dilation of the common bile duct. No filling defect seen. The patient had elevated LFTs. The patient underwent an MRCP. MRCP shows findings of suspicious acute cholecystitis and also the common duct shows filling defect. This was conveyed to the patient's and patient. I did diony ked to Dr. Louis Cruz regarding covering the patient today. I also called Dr. Tigre Winters to see the patient for possible input about possible cholecystectomy. This was conveyed to patient and patient' s .
--- NOTE | 2017-11-24 16:14 | PRG ---
DATE OF SERVICE: 11/24/2017 SUBJECTIVE: The patient is again complaining of generalized weakness. She has had no nausea, vomiti ng. Does not complain of acute abdominal pain. OBJECTIVE: VITAL SIGNS: Temperature 97.2, pulse 81, respiratory rate 16, blood pressure 130/60. HEENT: Unremarkable. NECK: Supple. CHEST: Clear. CARDIOVASCULAR: Regular rate and rhythm. ABDOMEN: Soft, nontender, without organomegaly or masses. Bowel sounds are present, normoactive. RECTAL: Deferred. LABORATORY DATA: Shows a white blood cell count 8.0, hemoglobin 11, hematocrit 34.9. Chemistry show s sodium 135, CO2 is 15, glucose 113, total bilirubin 0.5, AST 195, ALT 130, alkaline phosphatase of 507. Reviewing previous records from the outpatient setting. The patient was referred for an EUS an d they were unable to perform this secondary to restriction at the upper esophagus. They were able t o pass a pediatric endoscope. ASSESSMENT: Common bile duct stones by MRCP - considering the patient's anesthesia risk and also jayla bility to perform a laparoscopic common bile duct exploration, [facility] RECOMMENDATIONS: Begin transfer per transfer center.
[2017-11-24] MEDS: ALPRAZolam 0.25 MG TAB PO PRN (21:59)
[2017-11-25] MEDS: Sodium Chloride 0.9% 1,000 ML IV SCH ×2 (04:25→20:15)
[2017-11-25] MEDS: HYDROcodone/Acetaminophen 10/325 mg Tablet PO PRN ×5 (04:32→21:33)
[2017-11-25 06:12] VITALS: BMI 24.1
--- NOTE | 2017-11-25 07:42 | PDOC.PN ---
- Subjective Encounter Start Date: 11/25/17 Encounter Start Time: 07:41 Subjective: no change, comfortable - Objective Resuscitation Status: Resuscitation Status FULL:Full Resuscitation MAR Reviewed: Yes Vital Signs & Weight: Vital Signs (12 hours) Temp Pulse Resp BP Pulse Ox 11/25/17 06:49 96 11/25/17 04:43 97.6 F 88 18 130/78 92 L 11/25/17 01:00 74 11/24/17 21:00 97.9 F 86 18 132/63 95 11/24/17 20:55 97.9 F 86 18 95 Weight Admit Weight 95 lb 1.6 oz Weight 104 lb I&O: 11/24/17 11/25/17 11/26/17 06:59 06:59 06:59 Intake Total 1180 1756 Balance 1180 1756 Result Diagrams: 11/24/17 05:26 11/24/17 05:26 Phys Exam - Physical Examination Neck: no JVD Respiratory: clear to auscultation bilateral Cardiovascular: RRR, no significant murmur Gastrointestinal: soft, positive bowel sounds Musculoskeletal: edema present Dx/Plan (1) Urinary tract infection due to Proteus Code(s): N39.0 - URINARY TRACT INFECTION, SITE NOT SPECIFIED; B96.4 - PROTEUS ( MIRABILIS) (MORGANII) CAUSING DIS CLASSD ELSWHR Status: Acute Comment: continue Zosyn 3.375gm IV q6h, continue IVF's (2) Nausea & vomiting Code(s): R11.2 - NAUSEA WITH VOMITING, UNSPECIFIED Status: Acute (3) Transaminitis Code(s): R74.0 - NONSPEC ELEV OF LEVELS OF TRANSAMNS & LACTIC ACID DEHYDRGNSE Status: Acute Comment: Etiology unclear, CT abd/pel unrevealing as to source, serial monitoring, GI consulted, ? ERCP, MRI abd pending (4) Adrenal insufficiency Code(s): E27.40 - UNSPECIFIED ADRENOCORTICAL INSUFFICIENCY Status: Chronic (5) Dyslipidemia Code(s): E78.5 - HYPERLIPIDEMIA, UNSPECIFIED Status: Chronic (6) Generalized weakness Code(s): R53.1 - WEAKNESS Status: Chronic Comment: Likely multifactorial including #1, PT/OT evaluation (7) Physical deconditioning Code(s): R53.81 - OTHER MALAISE Status: Chronic Comment: See above (8) Rheumatoid arteritis Code(s): I00 - RHEUMATIC FEVER WITHOUT HEART INVOLVEMENT Status: Chronic - Plan planned transfer to [facility] today * .
--- NOTE | 2017-11-25 08:57 | DIS ---
DATE OF ADMISSION: 11/21/2017 DATE OF DISCHARGE: 11/25/2017, being transferred to [facility] in [place]. DIAGNOSES: Chronic cholecystitis with cholelithiasis, long-term rheumatoid arthritis, chronic glucoc orticoid use secondary to rheumatoid arthritis, abnormal liver function test, urinary tract infection with Proteus sensitive to penicillins and cephalosporins abnormal troponins, dyslipidemia, history o f adrenal insufficiency secondary to long-term glucocorticoid use. TRANSFER MEDICATIONS: Multivitamin, calcium carbonate 1000 mg q.4 h. p.r.n., Pepcid 20 mg twice a da y, heparin 5000 units subcu twice a day, ibuprofen 200 mg p.o. q.6 h. p.r.n., Zofran 4 mg oral dissol ving tablet daily, Zosyn 3.375 t.i.d., methylprednisolone 20 mg IV q.6 hours, Xanax 0.25 mg p.o. b.i. d. p.r.n., and Plaquenil 400 mg p.o. daily. ALLERGIES: CEPHALEXIN. PENDING AT THE TIME OF DISCHARGE: Nothing. CODE STATUS: FULL. HOSPITAL COURSE: The patient admitted to the [facility] through [facility] with generalized weakness. Patient with a history of advanced rheumatoid arthritis with d eformities, long-term steroid use for rheumatoid arthritis with relative adrenal insufficiency, cervi neelima radiculopathy, dyslipidemia, and urinary incontinence. Patient's initial laboratory revealed an AST of 296, ALT of 160, and alkaline phosphatase 238. Her troponins were 0.066, 0.073, and 0.078. T he patient with no chest pain, shortness of breath or cardiac related symptoms. No history of elizabeth ry artery disease. CBC revealed a mildly low white count of 4.2, hemoglobin 12.2, platelet count 195 ,000. The patient was taking 4-6 grams of Tylenol a day and it was thought this could be the cause o f Tylenol level less than 6. ABY screen was negative. ABY IgG screen was negative. The patient was seen in consultation by Dr. Francisco uGthrie, Infectious Disease, seen by Dr. Sebastien Berry for G I on-call for her coffee shop attendant, Dr. Louis Cruz. She had an MRI of the abdomen done 11/23/2017 with biliary duct dilatation with probable cholelithiasis, suspicious findings for cholecystitis. Dr Lien Cruz saw her on 11/24/2017. Assessment where she had common bile duct stones by MRCP. His judgment was considering the patient's anesthesia risk and inability to perform a laparoscopic common bile expiration. He recommended to [facility] to tertiary facility. He initiated that. I spoke with the hospitalist yesterday at [facility]. I have spoken with the transfer center today and transfer to [facility] in [place] is in the process of being arranged. Pertinent follow-up lab too that mentioned on admission included a current AST of 193, ALT of 130, al kaline phosphatase of 507. Patient currently has normal vital signs. She is asymptomatic except for her weakness, which is improved with the IV replacement for her glucocorticoid relative insufficienc y. Her dose could in part be reduced significantly. However, as a transfer is in process, we will m torsten no changes at this time. Forty minutes spent preparing this discharge. Follow up will be by her PCP, Dr. Washington sweeney hen she returns from [facility].
[2017-11-25] MEDS: Piperacillin/Tazobactam 3.375 GM in Sodium Chloride 0.9% 100 ML IVPB SCH ×3 (09:32→23:42)
[2017-11-25] MEDS: Famotidine 20 MG TAB PO SCH ×2 (09:33→20:16)
[2017-11-25] MEDS: Heparin 5,000 UNITS/ML VIAL SC SCH ×3 (09:33→20:20)
[2017-11-25] MEDS: Hydroxychloroquine Sulfate 200 MG TAB PO SCH (09:33)
[2017-11-25] MEDS: Multivit, Therapeutic 1 TAB PO SCH (09:34)
[2017-11-25] MEDS: Docusate 100 MG CAP PO SCH ×2 (09:34→20:16)
[2017-11-25] MEDS: Floranex Packet PO SCH (09:34)
[2017-11-25] MEDS: ALPRAZolam 0.25 MG TAB PO PRN ×2 (16:05→21:33)
[2017-11-25] MEDS: Ibuprofen 200 MG TAB PO PRN (16:08)
--- NOTE | 2017-11-25 20:17 | PRG ---
DATE OF SERVICE: 11/25/2017 SUBJECTIVE: The patient is complaining of abdominal pain. She is tolerating diet fairly well. OBJECTIVE: VITAL SIGNS: Temperature 98.6, pulse 77, respiratory rate 18, blood pressure 124/61. CHEST: Clear. CARDIOVASCULAR: Regular rate and rhythm. ABDOMEN: Benign. LABORATORY DATA: Shows no new chemistries or CBC. Yesterday, long discussions with mother, so we an ticipate transfer. ASSESSMENT: 1. Choledocholithiasis by MRCP. 2. Difficult airway with a high risk for intubation according to anesthesia. 3. Unable to pass of EUS scope in the past. RECOMMENDATION: Transfer to [facility] when bed is available.
[2017-11-25 23:26] VITALS: BP 143/77; TEMP 97.5
[2017-11-25] MEDS ORDERED: Sodium Chloride 0.9% 10 ML ONE (23:38)
[2017-11-26] MEDS: HYDROcodone/Acetaminophen 10/325 mg Tablet PO PRN (02:08)
[2017-11-26] MEDS: ALPRAZolam 0.25 MG TAB PO PRN (02:10)
== END 2017-11-26 02:29 | disposition short-term general hospital (02) | DRG 445 ==
LOC: SCSER 13:21 → 2NO 16:18
PROVIDERS: ADMIT Internal Medicine; ATTEND Internal Medicine
DX: K80.44 Calculus of bile duct with chronic cholecystitis without obstruction (principal); E27.40 Unspecified adrenocortical insufficiency; N39.0 Urinary tract infection, site not specified; M06.9 Rheumatoid arthritis, unspecified; E78.5 Hyperlipidemia, unspecified; N18.2 Chronic kidney disease, stage 2 (mild); R32 Unspecified urinary incontinence; H91.90 Unspecified hearing loss, unspecified ear; M54.12 Radiculopathy, cervical region; B96.4 Proteus (mirabilis) (morganii) as the cause of diseases classified elsewhere; Z88.1 Allergy status to other antibiotic agents; Z79.52 Long term (current) use of systemic steroids; Z79.899 Other long term (current) drug therapy
CPT/HCPCS: 36415; 51701; 71045; 74177; 74181; 76705; 80053; 80307; 81003; 81015; 82553; 83605; 83690; 83735; 84100; 84484; 85025; 86038; 86225; 87077; 87086; 87186; 90471; 90682; 93005; 94760; 96361; 96365; 96375; 96376; A4216; A4353; G0008; G8978-GP-CN; G8979-GP-CM; G8987-GO-CM; G8988-GO-CM; G8989-GO-CM; J1580; J1644; J1885; J2060; J2270; J2405; J2543; J2920; J7050; Q2036; Q9961

== ENCOUNTER 2018-01-22 15:18 | Outpatient (CLI) | payer MEDICARE, BC ==
[~2018-01-22 15:18] MED LIST: Iopamidol 370 76% 100 ML VIAL ONE
--- NOTE | 2018-01-22 16:21 | CT ---
CT ABDOMEN AND PELVIS WITH AND WITHOUT IV CONTRAST: 01/22/18 HISTORY: Abdominal pain. Recent surgery. Inadvertent drain removal. COMPARISON: 11/21/17 FINDINGS: There is mild atelectasis at the lung bases, right greater than left. Gallbladder is now surgically a bsent. Very mild distention of the intrahepatic biliary system is apparent. Postoperative changes of the colon and the right abdomen are evident. No free fluid or free air. Lack of oral contrast limits evaluation of the bowel. No gross bowel obstruction. No abscesses are ev ident, although lack of oral contrast limits evaluation for such. A 0.4 cm calculus is present at the left renal pelvis. Degenerative changes lumbar spine. Old posttra umatic changes of the pelvis. Soft tissue pelvic structures are predominantly obscured by beam harden ing artifact. IMPRESSION: 1. Postoperative changes abdomen. No evidence of complication. 2. Nonobstructing left renal calculus. 3. Chronic type findings are stable. POS: [facility]
== END 2018-01-22 15:19 | disposition home or self-care (01) ==
LOC: SCSCT 15:18
PROVIDERS: ATTEND Family Medicine
DX: Z48.815 Encounter for surgical aftercare following surgery on the digestive system (principal); Z90.49 Acquired absence of other specified parts of digestive tract; N20.0 Calculus of kidney
CPT/HCPCS: 74178

== ENCOUNTER 2018-04-25 16:14 | Emergency (ER) | payer MEDICARE, BC ==
[2018-04-25] MEDS ORDERED: Ibuprofen 200 MG TAB ONE (16:29)
[2018-04-25 17:23] LABS: Hemoglobin 11.4 g/dL (12.0-16.0); Mean Corpuscular HGB CONC 33.2 g/dL (32.0-36.0); Mean Corpuscular Hemoglobin 28.3 pg (27.0-31.0); Mean Corpuscular Volume 85.2 fL (78.0-98.0); Mean Platelet Volume 7.3 fL (7.4-10.4); Platelet Count 309 thou/uL (130-400); RBC Distribution Width 12.9 % (11.5-14.5); Red Blood Cell (RBC) Count 4.01 mill/uL (4.20-5.40); White Blood Cell (WBC) Count 10.2 thou/uL (4.8-10.8)
--- NOTE | 2018-04-25 17:23 | RAD ---
PORTABLE SEMIUPRIGHT FRONTAL CHEST RADIOGRAPH 04/25/18 COMPARISON: 11/21/17 HISTORY: Fever and abdominal pain. FINDINGS: The humeral head and proximal humeral shaft is absent bilaterally, a stable finding. No pneumothorax , pleural fluid, lobar consolidation or alveolar edema. Heart and mediastinal contours are stable. St able increased linear interstitial density noted bilaterally. IMPRESSION: Stable appearance of the chest - no acute findings. POS: [facility]
[2018-04-25 17:30] LABS: Band 2 % (5-11); Lymphocytes 5 % (21-51); MDiff Complete? YES; Monocytes 1 % (0-10); Neutrophil 91 % (42-75); PLT Morphology Comment Appears Adequate; RBC Morphology Normal
[2018-04-25 17:31] LABS: ALT (SGPT) 20 U/L (8-55); AST (SGOT) 52 U/L (5-34); Albumin 4.1 g/dL (3.4-4.8); Alkaline Phosphatase 217 U/L (40-150); Anion Gap 16 mmol/L (10-20); BUN (Urea Nitrogen) 26 mg/dL (9.8-20.1); Bilirubin, Total 0.5 mg/dL (0.2-1.2); Calc. Creatinine Clearance 0 mL/min (70-130); Calcium 9.9 mg/dL (7.8-10.44); Carbon Dioxide 21 mmol/L (23-31); Chloride 104 mmol/L (98-107); Estimated GFR-MDRD Greater than 90; Glucose 113 mg/dL (83-110); Lipase 15 U/L (8-78); Potassium 4.4 mmol/L (3.5-5.1); Protein, Total 7.1 g/dL (6.0-8.3); Sodium 137 mmol/L (136-145)
[2018-04-25 17:55] LABS: Bilirubin Negative (Negative); Blood, Urine Trace (Negative); Clarity Hazy (Clear); Glucose, Urine (Dipstick) Negative (Negative); Leukocyte Moderate (Negative); Nitrite Positive (Negative); Protein, Urine (Dipstick) 30 mg/dL (Neg-Trace); Urobilinogen 0.2 mg/dL (0.2-1.0)
[2018-04-25 17:57] LABS: Bacteria/HPF 4+ HPF (None Seen); RBC/HPF 0-3 HPF (0-3); WBC/HPF 21-50 HPF (0-3)
[2018-04-25] MEDS ORDERED: Piperacillin/Tazobactam 3.375 GM VIAL ONE (17:59)
[2018-04-25] MEDS ORDERED: Sodium Chloride 0.9% 100 ML ONE (18:00)
== END 2018-04-25 18:42 | disposition home or self-care (01) ==
LOC: SCSER 16:14
DX: N39.0 Urinary tract infection, site not specified (principal); M06.9 Rheumatoid arthritis, unspecified; F41.9 Anxiety disorder, unspecified; Z79.899 Other long term (current) drug therapy
CPT/HCPCS: 71045; 80053; 81003; 81015; 83605; 83690; 85025; 87040; 87077; 87086; 87149; 87186; 96361; 96365; 96375; 96376; A4353; J2270; J2543; J7050

== ENCOUNTER 2018-06-06 20:17 | Inpatient (IN) | payer MEDICARE, BC ==
[2018-06-06] MEDS ORDERED: Ondansetron HCl/PF 4 MG/2 ML Vial ONE (21:13)
[2018-06-06 21:29] LABS: Band 18 % (5-11); Hemoglobin 12.2 g/dL (12.0-16.0); Lymphocytes 3 % (21-51); MDiff Complete? YES; Mean Corpuscular HGB CONC 30.9 g/dL (32.0-36.0); Mean Corpuscular Hemoglobin 29.2 pg (27.0-31.0); Mean Corpuscular Volume 94.5 fL (78.0-98.0); Monocytes 2 % (0-10); Neutrophil 77 % (42-75); PLT Morphology Comment Appears Increased; Platelet Count 552 thou/uL (130-400); RBC Distribution Width 16.4 % (11.5-14.5); Red Blood Cell (RBC) Count 4.19 mill/uL (4.20-5.40); White Blood Cell (WBC) Count 13.2 thou/uL (4.8-10.8)
[2018-06-06 21:35] LABS: CKMB 3.2 ng/mL (0-6.6); Troponin I 0.034 ng/mL (< 0.028)
[2018-06-06 21:38] LABS: ALT (SGPT) 21 U/L (8-55); AST (SGOT) 54 U/L (5-34); Albumin 4.6 g/dL (3.4-4.8); Alkaline Phosphatase 140 U/L (40-150); Anion Gap 17 mmol/L (10-20); BUN (Urea Nitrogen) 46 mg/dL (9.8-20.1); Bilirubin, Total 0.6 mg/dL (0.2-1.2); CK (CPK) 39 U/L (29-168); Calc. Creatinine Clearance 0 mL/min (70-130); Calcium 10.3 mg/dL (7.8-10.44); Carbon Dioxide 18 mmol/L (23-31); Chloride 110 mmol/L (98-107); Estimated GFR-MDRD 79; Globulin 3.9 g/dL (2.4-3.5); Glucose 114 mg/dL (83-110); Potassium 4.5 mmol/L (3.5-5.1); Protein, Total 8.5 g/dL (6.0-8.3); Sodium 140 mmol/L (136-145)
[2018-06-06] MEDS ORDERED: Hydrocortisone Sod Succ/PF 100 mg/2 ml Vial IVP SCH (21:45)
[2018-06-06 21:52] LABS: Bilirubin Negative (Negative); Blood, Urine Small (Negative); Clarity CLOUDY (Clear); Glucose, Urine (Dipstick) Negative (Negative); Leukocyte Large (Negative); Nitrite Positive (Negative); Protein, Urine (Dipstick) Negative (Neg-Trace); Specific Gravity, Urine 1.021 (1.002-1.036); Urobilinogen 0.2 mg/dL (0.2-1.0); pH, Urine 5.5 (5.0-9.0)
[2018-06-06 21:53] LABS: Bacteria/HPF 3+ HPF (None Seen); Squamous Epithelial 0-3 HPF (0-3)
[2018-06-06 21:54] LABS: Pathc Cast-AUWi Flag 8.86 (0-2.49)
[2018-06-06 22:01] LABS: Hyaline Casts/LPF 0-3 HYALINE CAST LPF (0-3 Hyaline)
[2018-06-07 00:39] LABS: Troponin I 0.049 ng/mL (< 0.028)
[2018-06-07] MEDS ORDERED: Acetaminophen 325 MG TAB PO PRN (02:17)
[2018-06-07] MEDS ORDERED: Sodium Chloride 0.9% 1,000 ML IV SCH (02:17)
[2018-06-07] MEDS ORDERED: Ondansetron HCl/PF 4 MG/2 ML Vial IVP PRN (02:17)
[2018-06-07] MEDS ORDERED: Ondansetron ODT 4 MG TAB SL PRN (02:17)
[2018-06-07] MEDS ORDERED: Morphine 10 MG/ML VIAL SLOW IVP SCH (03:30)
[2018-06-07 03:45] LABS: Troponin I 0.058 ng/mL (< 0.028)
[2018-06-07] MEDS ORDERED: Acetaminophen 650 MG Suppository PR PRN (09:02)
[2018-06-07] MEDS: Vancomycin HCl 25 MG/ML Oral PO SCH ×4 (09:52→21:07)
[2018-06-07] MEDS: Sodium Chloride 0.9% 1,000 ML IV SCH ×3 (09:54→21:13)
--- NOTE | 2018-06-07 13:03 | HP ---
PRIMARY CARE PROVIDER: Washington Munoz M.D. CHIEF COMPLAINT: Diarrhea and vomiting. HISTORY OF PRESENT ILLNESS: Ms. Jauregui is a pleasant 73-year-old lady, who was seen at [facility] on 06/07/2018. She reports that she started having nausea, vomiting, and diarrhea since yesterday. She reports havi ng multiple episodes of vomiting as well as multiple loose stools. She reports generalized weakness. She reports abdominal cramps. She also reports temperature of 101 degrees Fahrenheit. She denies any dysuria. She denies any increased frequency of urination. She denies any headache. She came to the emergency room because of ongoing nausea, vomiting, and diarrhea. REVIEW OF SYSTEMS: All other systems reviewed and found to be negative. PAST MEDICAL HISTORY: Significant for advanced rheumatoid arthritis with deformities, cervical radic ulopathy, dyslipidemia, urinary incontinence, hearing loss, benign gallbladder mass, and adrenal insu fficiency. PAST SURGICAL HISTORY: Several orthopedic surgery, cervical laminectomy, and hematoma evacuation in 2016. FAMILY HISTORY: Mother with irregular heartbeat, father with lung disease. SOCIAL HISTORY: The patient denies tobacco use, alcohol use, or recreational drug use. ALLERGIES: KEFLEX. CURRENT MEDICATIONS: Tylenol extra strength 1000 mg every 4 hours as needed, Xanax 0.25 mg at bedtim e, calcium carbonate/vitamin D3 one tablet 2 times a day, vitamin D3 at 5000 units daily, Lopid 600 m g 2 times a day, probiotic 1 capsule daily, prednisone 5 mg daily, Plaquenil 400 mg daily, and multiv itamins 1 tablet daily. CODE STATUS: I discussed her code status. She is FULL CODE. PHYSICAL EXAMINATION: GENERAL: Ms. Jauregui is awake and alert, not in acute distress. She appears frail. VITAL SIGNS: BMI is 17.9. She has a blood pressure of 106/55, pulse 83, respiratory rate 18, and ox ygen saturation 94% on room air. She is afebrile currently. T-max in the emergency room was 100.3 d egrees Fahrenheit. EYES: No scleral icterus. No conjunctival pallor. ENT: Dry mucosal membranes, no oropharyngeal erythema or exudates. NECK: Supple, nontender, trachea is midline. RESPIRATORY: Accessory muscles of breathing are not active. Chest wall movements are symmetric bila terally. LUNGS: Clear to auscultation without wheeze, rhonchi, or crepitations. CARDIOVASCULAR: S1 and S2 are heard, regular. Peripheral pulses palpable. No carotid bruit, no per icardial rub. ABDOMEN: Soft, nontender, bowel sounds heard, no hepatomegaly, no splenomegaly. NEUROLOGIC: Cranial nerves II-XII intact. MUSCULOSKELETAL: Severe arthritic changes in all 4 extremities. SKIN: No rashes. LYMPHATIC: No cervical lymphadenopathy. PSYCHIATRIC: Normal mood, normal affect, patient is oriented to person, place, and time. LABORATORY DATA: Ms. Jauregui's labs and investigations were reviewed. She had an electrocardiogram, which shows normal sinus rhythm, no ST changes to suggest an acute coronary syndrome. She has leukoc ytosis with 13,200 white cells, of which 77% are neutrophils. She also has bandemia, with 18% bands. She has normal sodium, normal potassium, normal creatinine, elevated blood urea nitrogen of 46, royce vated AST of 54, normal ALT, normal alkaline phosphatase, indeterminate troponin I of 0.058, urinalys is positive for blood, nitrite and leukocyte esterase. ASSESSMENT AND PLAN: Ms. Jauregui is a pleasant 73-year-old lady who was seen at [facility] on 06/07/2018. Her problem list includes: 1. Diarrhea: The patient reports that she had two episodes of Clostridium difficile diarrhea in the past. Today, she has Clostridium difficile antigen positive, toxin. Toxigenic Clostridium difficil e was not detected by PCR. We will start her on empiric antibiotics for Clostridium difficile and co nsult GI Service for opinion and help with management. 2. Nausea and vomiting: This has improved. 3. Dehydration: The patient is clinically dehydrated. We will provide intravenous fluids. 4. Urinary tract infection. The patient has been started on levofloxacin, which I will continue. W e will follow urine cultures and adjust antibiotics as needed. 5. Severe rheumatoid arthritis: Stable. 6. Adrenal insufficiency: We will give her stress dose steroids for now. 7. Dyslipidemia: Continue gemfibrozil. Many thanks for allowing me to participate in your patient's care. Please feel free to contact me wi th any questions or concerns. LEVEL OF RISK: Moderate. LEVEL OF COMPLEXITY: Moderate.
[2018-06-07] MEDS: Nystatin 500,000 UNITS/5 ML UDCUP SSW SCH ×3 (13:20→21:08)
[2018-06-07] MEDS: metroNIDAZOLE 500 MG in Premix Bag 1 BAG IVPB SCH ×2 (13:21→17:47)
[2018-06-07] MEDS: Hydrocortisone Sod Succ/PF 50 MG in Sodium Chloride 0.9% 50 ML IVPB SCH ×2 (13:21→21:04)
[2018-06-07] MEDS: Gemfibrozil 600 MG TAB PO SCH (15:52)
[2018-06-07] MEDS: Morphine 4 MG/ML VIAL SLOW IVP PRN (15:55)
[2018-06-07] MEDS: Calcium Carbonate + Vit D 1 TAB PO SCH (15:56)
[2018-06-07] MEDS ORDERED: Hydroxychloroquine Sulfate 200 MG TAB PO SCH (17:00)
[2018-06-07] MEDS: Acetaminophen 325 MG TAB PO PRN ×2 (17:47→21:59)
[2018-06-07] MEDS: ALPRAZolam 0.25 MG TAB PO SCH ×2 (21:08→21:59)
[2018-06-08] MEDS: Acetaminophen 325 MG TAB PO PRN ×3 (03:42→17:44)
[2018-06-08] MEDS: metroNIDAZOLE 500 MG in Premix Bag 1 BAG IVPB SCH ×3 (03:43→17:45)
[2018-06-08] MEDS: Hydrocortisone Sod Succ/PF 50 MG in Sodium Chloride 0.9% 50 ML IVPB SCH (05:01)
[2018-06-08 05:54] LABS: #Eosinphils 0.1 thou/uL (0.0-0.7); #Lymphocytes 1.4 thou/uL (1.20-3.40); #Monocytes 0.4 thou/uL (0.11-0.59); #Neutrophils 1.9 thou/uL (1.40-6.50); %Basophils 0.5 % (0.0-1.0); %Eosinophils 1.4 % (0.0-10.0); %Monocytes 10.7 % (0.0-10.0); %Neutrophils 50.4 % (42.0-75.0); Hemoglobin 8.9 g/dL (12.0-16.0); Mean Corpuscular HGB CONC 31.5 g/dL (32.0-36.0); Mean Corpuscular Hemoglobin 30.2 pg (27.0-31.0); Mean Corpuscular Volume 95.8 fL (78.0-98.0); Mean Platelet Volume 6.9 fL (7.4-10.4); Platelet Count 341 thou/uL (130-400); Red Blood Cell (RBC) Count 2.94 mill/uL (4.20-5.40); White Blood Cell (WBC) Count 3.8 thou/uL (4.8-10.8)
[2018-06-08 06:00] LABS: Anion Gap 10 mmol/L (10-20); BUN (Urea Nitrogen) 17 mg/dL (9.8-20.1); Calc. Creatinine Clearance 61 mL/min (70-130); Calcium 8.6 mg/dL (7.8-10.44); Carbon Dioxide 15 mmol/L (23-31); Chloride 116 mmol/L (98-107); Estimated GFR-MDRD Greater than 90; Glucose 92 mg/dL (83-110); Potassium 3.4 mmol/L (3.5-5.1); Sodium 138 mmol/L (136-145)
[2018-06-08] MEDS: Vancomycin HCl 25 MG/ML Oral PO SCH ×4 (08:49→20:59)
[2018-06-08] MEDS: Nystatin 500,000 UNITS/5 ML UDCUP SSW SCH ×4 (08:49→20:59)
[2018-06-08] MEDS: Enoxaparin Sodium 40 MG/0.4 ML SYRINGE SC SCH (08:49)
[2018-06-08] MEDS: Gemfibrozil 600 MG TAB PO SCH ×2 (08:49→17:42)
[2018-06-08] MEDS: Lactinex Tablet PO SCH (08:49)
[2018-06-08] MEDS: Calcium Carbonate + Vit D 1 TAB PO SCH ×2 (08:50→17:43)
[2018-06-08] MEDS: Multivit, Therapeutic 1 TAB PO SCH (08:50)
[2018-06-08] MEDS: predniSONE 5 MG TAB PO SCH (08:50)
[2018-06-08] MEDS: Hydroxychloroquine Sulfate 200 MG TAB PO SCH (08:50)
[2018-06-08] MEDS ORDERED: Prevnar 13-Val Conj/PF 0.5 ML SYRINGE IM ONE (09:00)
--- NOTE | 2018-06-08 10:42 | PDOC.PN ---
- Subjective Encounter Start Date: 06/08/18 Encounter Start Time: 07:20 Pt seen for followup re: UTI. denies chest pain. No vomiting. No diarrhea since yesterday. No fevers. - Objective Resuscitation Status: Resuscitation Status FULL:Full Resuscitation Vital Signs & Weight: Vital Signs (12 hours) Temp Pulse Resp BP Pulse Ox 06/08/18 08:00 97.6 F 62 16 112/56 L 95 06/08/18 04:00 97.7 F 60 16 105/54 L 97 06/07/18 23:56 98.1 F 69 16 113/56 L 98 Weight Weight 88 lb 6.4 oz I&O: 06/07/18 06/08/18 06/09/18 06:59 06:59 06:59 Intake Total 0 Balance 0 Result Diagrams: 06/08/18 05:20 06/08/18 05:20 Phys Exam - Physical Examination Constitutional: NAD HEENT: moist MMs, sclera anicteric, oral pharynx no lesions, 2+ tonsils Neck: no nodes, no JVD, supple, full ROM Respiratory: no wheezing, no rales, no rhonchi, clear to auscultation bilateral Cardiovascular: RRR, no rub S1, S2 Gastrointestinal: soft, non-tender, no distention, positive bowel sounds severe arthritic changes Neurological: moves all 4 limbs Psychiatric: normal affect, A&O x 3 Dx/Plan (1) UTI (urinary tract infection) Status: Acute Comment: E. coli sensitive to fluoroquinolones, continue levofloxacin (2) Diarrhea Code(s): R19.7 - DIARRHEA, UNSPECIFIED Status: Acute Comment: antigen +ve. toxin -ve. Pt improved with enteral vancomycin and IV metronidazole, will continue. (3) Adrenal insufficiency Code(s): E27.40 - UNSPECIFIED ADRENOCORTICAL INSUFFICIENCY Status: Chronic Comment: will discontinue solu-cortef (4) Dyslipidemia Code(s): E78.5 - HYPERLIPIDEMIA, UNSPECIFIED Status: Chronic Comment: continue gemfibrozil (5) Rheumatoid arthritis Code(s): M06.9 - RHEUMATOID ARTHRITIS, UNSPECIFIED Status: Chronic Qualifiers: Laterality: bilateral Comment: Continue Prednisone, Plaquenil - Plan * . Review of Systems - Review of Systems Constitutional: weakness. negative: fever, chills, sweats, malaise Respiratory: negative: Cough, Shortness of Breath, SOB with Excertion, Pleuritic Pain, Wheezing Cardiovascular: negative: chest pain, palpitations, orthopnea, paroxysmal nocturnal dyspnea, edema, light headedness Gastrointestinal: negative: Nausea, Vomiting, Abdominal Pain, Diarrhea, Constipation, Melena, Hematochezia Genitourinary: negative: Dysuria, Frequency, Incontinence, Hematuria, Retention Skin: negative: Rash, Lesions, Otis, Bruising - Medications/Allergies Allergies/Adverse Reactions: Allergies Allergy/AdvReac Type Severity Reaction Status Date / Time cephalexin monohydrate Allergy Severe Anaphylaxis Verified 12/08/15 12:55 [From Keflex] Medications: Current Medications Acetaminophen (Tylenol) 650 mg PO Q4H PRN PRN Reason: Headache/Fever or Pain Last Admin: 06/08/18 08:51 Dose: 650 mg Acetaminophen (Tylenol) 650 mg DC Q4H PRN PRN Reason: Headache/Fever or Pain Acidophilus (Floranex) 1 tab PO DAILY REPLACED BY [facility] Last Admin: 06/08/18 08:49 Dose: 1 tab Alprazolam (Xanax) 0.25 mg PO [facility] Last Admin: 06/07/18 21:59 Dose: 0.25 mg Calcium/Vitamin D (Caltrate 600 + Vit D) 1 tab PO BID-WM REPLACED BY [facility] Last Admin: 06/08/18 08:50 Dose: 1 tab Cholecalciferol (Vitamin D3) 5,000 units PO DAILY REPLACED BY [facility] Last Admin: 06/08/18 08:50 Dose: 5,000 units Enoxaparin Sodium (Lovenox) 40 mg SC 0900 REPLACED BY [facility] Last Admin: 06/08/18 08:49 Dose: 40 mg Gemfibrozil (Lopid) 600 mg PO BID-AC REPLACED BY [facility] Last Admin: 06/08/18 08:49 Dose: 600 mg Hydroxychloroquine Sulfate (Plaquenil) 400 mg PO DAILY REPLACED BY [facility] Last Admin: 06/08/18 08:50 Dose: 400 mg Metronidazole 500 mg/ Device 100 mls @ 100 mls/hr IVPB 0300,1100,1900 REPLACED BY [facility] Last Admin: 06/08/18 10:29 Dose: 100 mls Levofloxacin 250 mg/ Device 50 mls @ 100 mls/hr IVPB 2300 REPLACED BY [facility] Last Admin: 06/07/18 23:42 Dose: 50 mls Sodium Chloride (Normal Saline 0.9%) 1,000 mls @ 70 mls/hr IV .[id number] REPLACED BY [facility] Last Admin: 06/07/18 21:13 Dose: 1,000 mls Morphine Sulfate (Morphine) 2 mg SLOW IVP Q6H PRN PRN Reason: Pain Last Admin: 06/07/18 15:55 Dose: 2 mg Multivitamins (Theragran) 1 tab PO DAILY REPLACED BY [facility] Last Admin: 06/08/18 08:50 Dose: 1 tab Nystatin (Mycostatin) 500,000 units SSW QID REPLACED BY [facility] Last Admin: 06/08/18 08:49 Dose: 500,000 units Prednisone (Prednisone) 5 mg PO QAM-WM REPLACED BY [facility] Last Admin: 06/08/18 08:50 Dose: 5 mg Sodium Chloride (Flush - Normal Saline) 10 ml IVF Q12HR REPLACED BY [facility] Last Admin: 06/08/18 08:52 Dose: 10 ml Sodium Chloride (Flush - Normal Saline) 10 ml IVF PRN PRN PRN Reason: Saline Flush Vancomycin HCl (First Vancomycin) 125 mg PO QID REPLACED BY [facility] Last Admin: 06/08/18 08:49 Dose: 125 mg
[2018-06-08] MEDS ORDERED: Hydrocortisone Sod Succ/PF 100 mg/2 ml Vial IVP SCH (12:00)
[2018-06-08 13:44] VITALS: BMI 18.4
[2018-06-08] MEDS: Sodium Chloride 0.9% 1,000 ML IV SCH (14:36)
[2018-06-08] MEDS: Morphine 4 MG/ML VIAL SLOW IVP PRN (14:40)
--- NOTE | 2018-06-08 15:11 | CON ---
DATE OF CONSULTATION: 06/08/2018 REASON FOR CONSULTATION: Clostridium difficile colitis. HISTORY OF PRESENT ILLNESS: Ms. Ayde Jauregui is a 73-year-old female, who reported she is being anusha jeramy for recurrent UTIs since April. She states she had positive cultures and dysuria, frequency, ur gency. When on Friday, she began having diarrhea up to 8 times per day with a fever up to 102 and she came into the hospital and was diagnosed with C. difficile. She had nausea and vomiting, which i s resolved now. She reports she had C. difficile in the past on reviewing her records in 11/2015. S he had C. difficile antigen positive, toxin negative on 11/17/2017; and then on 11/18/2017, C. diffic ile antigen and toxin both negative; 12/05/2017, antigen toxin both negative; 02/12/2016, antigen and toxin both negative; 02/28/2018, antigen positive and toxin negative, and later that month, again to zhanna and antigen negative; 04/2016, she had antigen positive, toxin negative; through 2016 and 2017, i t does not seem like it was an issue; in 05/2018, she had C. difficile drawn when she was having diar jose luis, antigen positive, toxin negative. Again, that was when she was admitted on Friday. Campylob acter is negative, negative. Stool culture showed many normal enteric isac. Lactoferrin was elevated. Blood cultures pending. Urine culture showed E. coli, 06/06 and also on 06/04; 05/21 show ed Klebsiella; 04/15 showed micrococcus. Patient has been taking probiotics when she gets anti biotics. She is on liquid diet and wishes to eat a little bit more now. She is on isolation precaut ions. PAST MEDICAL HISTORY: Severe rheumatoid arthritis with multiple prior surgeries and deformed joints. She has been on Plaquenil and Remicade in the past. Chronic kidney disease, history of cervical ra diculopathy and cervical surgery in 2015. Hyperlipidemia, cataracts, and previous pancreatitis in as well. Previous upper and lower endoscopy in 2009, for unexplained diarrhea showed diverticulos is and a normal upper endoscopy. Biopsy showed no celiac. She did have mild ischemic pattern colopa thy at that time. Other surgeries include cholecystectomy, lower extremity hematoma, which required surgery. She had had laparoscopic cholecystectomy in 11/2017. This was done at an outside facility, as previous attempts at outpatient EUS to evaluate her cause for pancreatitis were unsuccessful seco ndary to stricture in the esophagus. FAMILY HISTORY: Noncontributory. SOCIAL HISTORY: The patient has denies alcohol use, drug use, tobacco use. ALLERGIES: KEFLEX. MEDICATIONS: Extra Strength Tylenol p.r.n., Xanax, calcium, vitamin D, vitamin D3, Lopid, probiotic, prednisone, Plaquenil, multivitamin. She had recently been on antibiotics as well. PRESENT MEDICATIONS: Vancomycin 125 q.i.d., metronidazole 500 mg q.8 hours, levofloxacin for UTI, Lo venox, gemfibrozil, Plaquenil, morphine, prednisone 5, normal saline 70. PHYSICAL EXAMINATION: GENERAL: She is resting in bed. She has got multiple deformities of the joints in the hands and fee t, ankles, wrist. 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 NECK: She has small fixed neck. VITAL SIGNS: Temperature is 97.2, pulse 67, blood pressure 112/56. LUNGS: Clear. CARDIOVASCULAR: Heart regular rhythm. ABDOMEN: Soft and nontender. Bowel sounds are positive and hyperactive. LABORATORY AND X-RAY FINDINGS: White count 3.8; hemoglobin 8.9, baseline is usually 12; platelet cou nt is 341. INR is 1. Sodium 138, potassium 3.4, chloride is 116, bicarbonate 15, anion gap is 7, BU N and creatinine are 17 and 0.5, AST was 54, ALT was 21. Liver function tests were, otherwise, emma l. Protein was 8.5, albumin was 4.6. Previous stool studies diarrhea, negative fecal fat. Pr evious biopsies for celiac were negative in 2016. ASSESSMENT: 1. Abrupt-onset diarrhea with fever on Friday from multiple courses of IV antibiotics. She has st ool positive for Clostridium difficile antigen, toxin is negative. She does have a positive fecal wh ite blood cells. She has had colonoscopy with no signs of overt colitis in the past. Negative for c eliac evaluation. This is likely an antibiotic associated diarrhea. It does not appear that she has Clostridium difficile toxin at this time. She is more of a carrier. I would agree with treating as you are with vancomycin and Flagyl. We would start a probiotic. 2. With regard to her chronic steroid use, if she shows any signs of hypotension, I would give her s tress dose steroids. 3. We would monitor electrolytes. If she has no improvement, we would obtain abdominal films.
[2018-06-08] MEDS: ALPRAZolam 0.25 MG TAB PO SCH (20:58)
[2018-06-09] MEDS: metroNIDAZOLE 500 MG in Premix Bag 1 BAG IVPB SCH ×3 (03:02→18:50)
[2018-06-09] MEDS: Sodium Chloride 0.9% 1,000 ML IV SCH ×2 (03:02→17:25)
[2018-06-09] MEDS: Acetaminophen 325 MG TAB PO PRN ×4 (04:20→23:17)
[2018-06-09 05:03] LABS: #Eosinphils 0.1 thou/uL (0.0-0.7); #Lymphocytes 1.7 thou/uL (1.20-3.40); #Monocytes 0.4 thou/uL (0.11-0.59); #Neutrophils 2.4 thou/uL (1.40-6.50); %Basophils 0.7 % (0.0-1.0); %Eosinophils 2.3 % (0.0-10.0); %Lymphocytes 36.4 % (21.0-51.0); %Monocytes 8.4 % (0.0-10.0); %Neutrophils 52.1 % (42.0-75.0); Hemoglobin 9.4 g/dL (12.0-16.0); Mean Corpuscular HGB CONC 30.8 g/dL (32.0-36.0); Mean Corpuscular Hemoglobin 29.2 pg (27.0-31.0); Mean Corpuscular Volume 94.9 fL (78.0-98.0); Platelet Count 341 thou/uL (130-400); RBC Distribution Width 16.2 % (11.5-14.5); Red Blood Cell (RBC) Count 3.22 mill/uL (4.20-5.40); White Blood Cell (WBC) Count 4.7 thou/uL (4.8-10.8)
[2018-06-09 05:12] LABS: Anion Gap 10 mmol/L (10-20); BUN (Urea Nitrogen) 10 mg/dL (9.8-20.1); Calc. Creatinine Clearance 62 mL/min (70-130); Calcium 8.7 mg/dL (7.8-10.44); Carbon Dioxide 17 mmol/L (23-31); Chloride 116 mmol/L (98-107); Estimated GFR-MDRD Greater than 90; Glucose 90 mg/dL (83-110); Magnesium 1.3 mg/dL (1.6-2.6); Phosphorus 2.6 mg/dL (2.3-4.7); Potassium 3.7 mmol/L (3.5-5.1); Sodium 139 mmol/L (136-145)
[2018-06-09] MEDS: Calcium Carbonate + Vit D 1 TAB PO SCH ×2 (09:03→17:22)
[2018-06-09] MEDS: Hydroxychloroquine Sulfate 200 MG TAB PO SCH (09:03)
[2018-06-09] MEDS: Nystatin 500,000 UNITS/5 ML UDCUP SSW SCH ×4 (09:04→20:36)
[2018-06-09] MEDS: Lactinex Tablet PO SCH (09:04)
[2018-06-09] MEDS: Gemfibrozil 600 MG TAB PO SCH ×2 (09:04→17:22)
[2018-06-09] MEDS: Saccharomyces boulardii 250 MG CAP PO SCH (09:04)
[2018-06-09] MEDS: Enoxaparin Sodium 40 MG/0.4 ML SYRINGE SC SCH (09:04)
[2018-06-09] MEDS: predniSONE 5 MG TAB PO SCH (09:04)
[2018-06-09] MEDS: Multivit, Therapeutic 1 TAB PO SCH (09:04)
[2018-06-09] MEDS: Vancomycin HCl 25 MG/ML Oral PO SCH ×4 (09:07→20:37)
[2018-06-09] MEDS: ALPRAZolam 0.25 MG TAB PO SCH (20:37)
[2018-06-09] MEDS: Morphine 2 MG/ML SYRINGE SLOW IVP PRN (21:18)
--- NOTE | 2018-06-09 21:23 | PDOC.PN ---
- Subjective Encounter Start Date: 06/09/18 Encounter Start Time: 10:30 Subjective: pt up in bed still having some diarrhea - Objective Resuscitation Status: Resuscitation Status FULL:Full Resuscitation Vital Signs & Weight: Vital Signs (12 hours) Temp Pulse Resp BP BP Pulse Ox 06/09/18 19:53 89.1 F L 82 20 157/83 H 96 06/09/18 16:00 98.2 F 83 16 173/83 H 96 06/09/18 12:00 98.4 F 74 16 130/66 96 Weight Admit Weight 88 lb 6.4 oz Weight 88 lb 6.4 oz I&O: 06/08/18 06/09/18 06/10/18 06:59 06:59 06:59 Intake Total 0 320 480 Balance 0 320 480 Result Diagrams: 06/09/18 04:29 06/09/18 04:29 Additional Labs: Accuchecks 06/09/18 04:39 POC Glucose 103 Phys Exam - Physical Examination Neck: no nodes, no JVD, supple, full ROM Respiratory: no wheezing, no rales, no rhonchi, wheezing present, clear to auscultation bilateral Cardiovascular: RRR, no significant murmur, no rub, gallop, irregular Gastrointestinal: soft, positive bowel sounds mild tenderness to lower abd Dx/Plan (1) Diarrhea Code(s): R19.7 - DIARRHEA, UNSPECIFIED Status: Acute Comment: antigen +ve. toxin -ve. Pt improved with enteral vancomycin and IV metronidazole, will continue. (2) UTI (urinary tract infection) Status: Acute Comment: E. coli sensitive to fluoroquinolones, continue levofloxacin (3) Rheumatoid arthritis Code(s): M06.9 - RHEUMATOID ARTHRITIS, UNSPECIFIED Status: Acute - Plan pt's cdiff toxin is negative -: ? ischemic colitis will check lactic acid -: will continue abx for uti and cdiff since pt is immunocompromised * . Review of Systems - Review of Systems Respiratory: negative: Cough, Dry, Shortness of Breath, Hemoptysis, SOB with Excertion, Pleuritic Pain, Sputum, Wheezing Cardiovascular: negative: chest pain, palpitations, orthopnea, paroxysmal nocturnal dyspnea, edema, light headedness, other Gastrointestinal: Diarrhea Genitourinary: negative: Dysuria, Frequency, Incontinence, Hematuria, Retention , Other - Medications/Allergies Allergies/Adverse Reactions: Allergies Allergy/AdvReac Type Severity Reaction Status Date / Time cephalexin monohydrate Allergy Severe Anaphylaxis Verified 12/08/15 12:55 [From Keflex] Medications: Current Medications Acetaminophen (Tylenol) 650 mg PO Q4H PRN PRN Reason: Headache/Fever or Pain Last Admin: 06/09/18 17:22 Dose: 650 mg Acetaminophen (Tylenol) 650 mg TN Q4H PRN PRN Reason: Headache/Fever or Pain Acidophilus (Floranex) 1 tab PO DAILY [facility] Last Admin: 06/09/18 09:04 Dose: 1 tab Alprazolam (Xanax) 0.25 mg PO HS [facility] Last Admin: 06/09/18 20:37 Dose: 0.25 mg Calcium/Vitamin D (Caltrate 600 + Vit D) 1 tab PO BID-WM [facility] Last Admin: 06/09/18 17:22 Dose: 1 tab Cholecalciferol (Vitamin D3) 5,000 units PO DAILY [facility] Last Admin: 06/09/18 09:03 Dose: 5,000 units Enoxaparin Sodium (Lovenox) 40 mg SC 0900 [facility] Last Admin: 06/09/18 09:04 Dose: Not Given Gemfibrozil (Lopid) 600 mg PO BID-AC [facility] Last Admin: 06/09/18 17:22 Dose: 600 mg Hydroxychloroquine Sulfate (Plaquenil) 400 mg PO DAILY [facility] Last Admin: 06/09/18 09:03 Dose: 400 mg Metronidazole 500 mg/ Device 100 mls @ 100 mls/hr IVPB 0300,1100,1900 [facility] Last Admin: 06/09/18 18:50 Dose: 100 mls Sodium Chloride (Normal Saline 0.9%) 1,000 mls @ 70 mls/hr IV .[id number] [facility] Last Admin: 06/09/18 17:25 Dose: 1,000 mls Levofloxacin (Levaquin) 250 mg PO 2100 [facility] Last Admin: 06/09/18 20:37 Dose: 250 mg Morphine Sulfate (Morphine) 2 mg SLOW IVP Q6H PRN PRN Reason: Pain Last Admin: 06/09/18 21:18 Dose: 2 mg Multivitamins (Theragran) 1 tab PO DAILY [facility] Last Admin: 06/09/18 09:04 Dose: 1 tab Nystatin (Mycostatin) 500,000 units SSW QID [facility] Last Admin: 06/09/18 20:36 Dose: 500,000 units Prednisone (Prednisone) 5 mg PO QAM-WM [facility] Last Admin: 06/09/18 09:04 Dose: 5 mg Saccharomyces Boulardii (Florastor) 250 mg PO DAILY [facility] Last Admin: 06/09/18 09:04 Dose: 250 mg Sodium Chloride (Flush - Normal Saline) 10 ml IVF Q12HR [facility] Last Admin: 06/09/18 21:21 Dose: 10 ml Sodium Chloride (Flush - Normal Saline) 10 ml IVF PRN PRN PRN Reason: Saline Flush Vancomycin HCl (First Vancomycin) 125 mg PO QID [facility] Last Admin: 06/09/18 20:37 Dose: 125 mg
--- NOTE | 2018-06-10 01:40 | PRG ---
DATE OF SERVICE: 06/09/2018 SUBJECTIVE: Ms. Jauregui states she has had about 5 bowel movements today and they are very watery. She states she was not feeling much different than when she came in. MEDICATIONS: Include Acidophilus, Lovenox, Lopid, Plaquenil, Levaquin, Flagyl, Saccharomyces boulardii and oral vancomycin, prednisone. PHYSICAL EXAMINATION: VITAL SIGNS: Temperature is 98, pulse 83, blood pressure 123/83, respirations 16. ABDOMEN: Soft and nontender. LUNGS: Clear. LABORATORY STUDIES: White count 4.7, hemoglobin 9.4, platelet count 341. Sodium 139, potassium 3.7, BUN and creatinine are 10 and 0.5, magnesium is 1.3 this should be replaced. Urine cultures E. coli. Stool positive for C. diff antigen, negative toxin positive fecal lactoferrin. ASSESSMENT AND PLAN: Chronic diarrhea and recurrent use of antibiotics. This is likely antibiotic-associated diarrhea. We would continue probiotic, Flagyl and Levaquin. Hopefully, we can switch from Levaquin to probiotic Flagyl and vancomycin. Hope we can stop the vancomycin tomorrow; as soon as her Levaquin can be stopped that would be the best and then we treat her for 2 weeks after that with probiotics and the oral vancomycin. [facility]
[2018-06-10] MEDS: metroNIDAZOLE 500 MG in Premix Bag 1 BAG IVPB SCH ×2 (02:50→11:40)
[2018-06-10] MEDS: Morphine 2 MG/ML SYRINGE SLOW IVP PRN ×3 (04:21→20:39)
[2018-06-10] MEDS: Acetaminophen 325 MG TAB PO PRN ×3 (04:30→20:39)
[2018-06-10 06:08] LABS: Lactic Acid 0.7 mmol/L (0.5-2.2)
[2018-06-10 06:10] LABS: Magnesium 1.5 mg/dL (1.6-2.6); Phosphorus 2.8 mg/dL (2.3-4.7)
[2018-06-10] MEDS: Gemfibrozil 600 MG TAB PO SCH ×2 (08:15→17:31)
[2018-06-10] MEDS: Multivit, Therapeutic 1 TAB PO SCH (08:18)
[2018-06-10] MEDS: predniSONE 5 MG TAB PO SCH (08:18)
[2018-06-10] MEDS: Hydroxychloroquine Sulfate 200 MG TAB PO SCH (08:18)
[2018-06-10] MEDS: Lactinex Tablet PO SCH (08:19)
[2018-06-10] MEDS: Calcium Carbonate + Vit D 1 TAB PO SCH ×2 (08:19→18:06)
[2018-06-10] MEDS: Saccharomyces boulardii 250 MG CAP PO SCH (08:19)
[2018-06-10] MEDS: Nystatin 500,000 UNITS/5 ML UDCUP SSW SCH ×4 (08:19→20:32)
[2018-06-10] MEDS: Enoxaparin Sodium 40 MG/0.4 ML SYRINGE SC SCH (08:19)
[2018-06-10] MEDS: Vancomycin HCl 25 MG/ML Oral PO SCH ×4 (08:20→20:32)
[2018-06-10] MEDS: Sodium Chloride 0.9% 1,000 ML IV SCH ×2 (11:42→12:53)
--- NOTE | 2018-06-10 14:06 | PDOC.PN ---
- Subjective Encounter Start Date: 06/10/18 Encounter Start Time: 10:00 Subjective: pt continues to have diarrhea and feels weak - Objective Resuscitation Status: Resuscitation Status FULL:Full Resuscitation Vital Signs & Weight: Vital Signs (12 hours) Temp Pulse Resp BP BP Pulse Ox 06/10/18 07:13 97.5 F L 75 16 136/80 97 06/10/18 04:00 98.0 F 76 20 154/82 H 99 Weight Admit Weight 88 lb 6.4 oz Weight 88 lb 6.4 oz I&O: 06/09/18 06/10/18 06/11/18 06:59 06:59 06:59 Intake Total 320 1570 Balance 320 1570 Result Diagrams: 06/09/18 04:29 06/09/18 04:29 Phys Exam - Physical Examination Neck: no nodes, no JVD, supple, full ROM Respiratory: no wheezing, no rales, no rhonchi, wheezing present, clear to auscultation bilateral Cardiovascular: RRR, no significant murmur, no rub, gallop, irregular Gastrointestinal: soft, non-tender, no distention, positive bowel sounds Musculoskeletal: no edema, pulses present, edema present Dx/Plan (1) Diarrhea Code(s): R19.7 - DIARRHEA, UNSPECIFIED Status: Acute Comment: antigen +ve. toxin -ve. Pt improved with enteral vancomycin and IV metronidazole, will continue. (2) UTI (urinary tract infection) Status: Acute Comment: E. coli sensitive to fluoroquinolones, continue levofloxacin (3) Rheumatoid arthritis Code(s): M06.9 - RHEUMATOID ARTHRITIS, UNSPECIFIED Status: Acute - Plan pt on levaquin for her uti, on flagyl and vanco. she feels she has not -: improved. lactic was normal. will get ct abd/pel with contrast -: she has had ischemia colitis in the past * . Review of Systems - Review of Systems ENT: negative: Ear Pain, Ear Discharge, Nose Pain, Nose Discharge, Nose Congestion, Mouth Pain, Mouth Swelling, Throat Pain, Throat Swelling, Other Respiratory: negative: Cough, Dry, Shortness of Breath, Hemoptysis, SOB with Excertion, Pleuritic Pain, Sputum, Wheezing Cardiovascular: negative: chest pain, palpitations, orthopnea, paroxysmal nocturnal dyspnea, edema, light headedness, other Gastrointestinal: Other (diarrhea) Genitourinary: negative: Dysuria, Frequency, Incontinence, Hematuria, Retention , Other Musculoskeletal: negative: Neck Pain, Shoulder Pain, Arm Pain, Back Pain, Hand Pain, Leg Pain, Foot Pain, Other - Medications/Allergies Allergies/Adverse Reactions: Allergies Allergy/AdvReac Type Severity Reaction Status Date / Time cephalexin monohydrate Allergy Severe Anaphylaxis Verified 12/08/15 12:55 [From Keflex] Medications: Current Medications Acetaminophen (Tylenol) 650 mg PO Q4H PRN PRN Reason: Headache/Fever or Pain Last Admin: 06/10/18 13:20 Dose: 650 mg Acetaminophen (Tylenol) 650 mg DC Q4H PRN PRN Reason: Headache/Fever or Pain Acidophilus (Floranex) 1 tab PO DAILY [facility] Last Admin: 06/10/18 08:19 Dose: 1 tab Alprazolam (Xanax) 0.25 mg PO HS [facility] Last Admin: 06/09/18 20:37 Dose: 0.25 mg Calcium/Vitamin D (Caltrate 600 + Vit D) 1 tab PO BID-WM [facility] Last Admin: 06/10/18 08:19 Dose: 1 tab Cholecalciferol (Vitamin D3) 5,000 units PO DAILY [facility] Last Admin: 06/10/18 08:17 Dose: 5,000 units Enoxaparin Sodium (Lovenox) 40 mg SC 0900 [facility] Last Admin: 06/10/18 08:19 Dose: Not Given Gemfibrozil (Lopid) 600 mg PO BID-AC [facility] Last Admin: 06/10/18 08:15 Dose: 600 mg Hydroxychloroquine Sulfate (Plaquenil) 400 mg PO DAILY [facility] Last Admin: 06/10/18 08:18 Dose: 400 mg Metronidazole 500 mg/ Device 100 mls @ 100 mls/hr IVPB 0300,1100,1900 [facility] Last Admin: 06/10/18 11:40 Dose: 100 mls Sodium Chloride (Normal Saline 0.9%) 1,000 mls @ 70 mls/hr IV .[id number] [facility] Last Admin: 06/10/18 12:53 Dose: 1,000 mls Levofloxacin (Levaquin) 250 mg PO 2100 [facility] Last Admin: 06/09/18 20:37 Dose: 250 mg Morphine Sulfate (Morphine) 2 mg SLOW IVP Q6H PRN PRN Reason: Pain Last Admin: 06/10/18 13:20 Dose: 2 mg Multivitamins (Theragran) 1 tab PO DAILY [facility] Last Admin: 06/10/18 08:18 Dose: 1 tab Nystatin (Mycostatin) 500,000 units SSW QID [facility] Last Admin: 06/10/18 12:52 Dose: 500,000 units Prednisone (Prednisone) 5 mg PO QAM-WM [facility] Last Admin: 06/10/18 08:18 Dose: 5 mg Saccharomyces Boulardii (Florastor) 250 mg PO DAILY [facility] Last Admin: 06/10/18 08:19 Dose: 250 mg Sodium Chloride (Flush - Normal Saline) 10 ml IVF Q12HR [facility] Last Admin: 06/10/18 08:20 Dose: 10 ml Sodium Chloride (Flush - Normal Saline) 10 ml IVF PRN PRN PRN Reason: Saline Flush Vancomycin HCl (First Vancomycin) 125 mg PO QID [facility] Last Admin: 06/10/18 12:52 Dose: 125 mg
[2018-06-10] MEDS ORDERED: ISOVUE-370 76%-LOCM 1 ML ONE (14:13)
--- NOTE | 2018-06-10 14:32 | CT ---
CT ABDOMEN AND PELVIS WITH IV CONTRAST: DATE: 06/10/18. HISTORY: Diarrhea with nausea and vomiting. Abdominal pain. COMPARISON: 11/21/17. FINDINGS: There are small bilateral pleural effusions and associated passive atelectasis. There have been interval postsurgical changes related to cholecystectomy. There is mild intrahepatic biliary ductal dilatation greater involving the left hepatic lobe likely related to reservoir effect from prior cholecystectomy. The pancreas is again fatty replaced. The spleen, bilateral adrenal glands, and kidneys demonstrate a normal CT appearance. There are extensive postoperative changes of each hip and proximal femurs with significant streak art ifact in the pelvis and urinary bladder is not well evaluated, but there does appear to be gas in the anterior aspect of the urinary bladder which may be related to recent catheterization. Clinical cor relation is recommended. There is radiopaque suture material and postsurgical changes involving a loop of small bowel within t he right upper pelvis. This was also present on the prior study on 01/22/18. This loop of small michael l is mildly dilated, and this was also present on the prior exam. The remainder of the small bowel l oops are normal in caliber. While portions of the colon related to the cecum as well as portion of the descending colon and sigmo id colon and rectum are not well seen due to the significant artifact in the pelvis, but the visualiz ed portions of the colon demonstrate no significant bowel wall thickening. While there is a focal ar ea of mild thickening involving the mid transverse, this is probably attributable to peristalsis as o pposed to a lesion in this region, although this would better evaluated with either followup exam or colonoscopy. This was not present on the prior exam on 01/22/18. Dense vascular calcifications are again present. No other interval change. IMPRESSION: 1. Small bilateral pleural effusions and atelectasis. 2. Post cholecystectomy changes with evidence of intra- and extrahepatic biliary ductal dilatation, probably attributable to reservoir effect. 3. Postsurgical change of a loop of small bowel which is dilated and partially fluid-filled, but thi s is stable from the study on 01/22/18. 4. Focal area of apparent thickening involving the mid left transverse colon, but this is thought to more likely secondary to peristalsis as this was not appreciated on the prior exam, but this would b alysia evaluated with either a followup examination or colonoscopy. There are no findings to suggest colitis on this exam. 5. Extensive postsurgical changes of bilateral iliac bones and each femur as well as postsurgical ch anges involving the right wrist and hand. There is also abnormal appearance of each elbow, which may be posttraumatic in origin related and to remote injuries or infection. 6. Stable compression fractures of the L2 and L3 vertebral bodies. Degree of height loss is overall similar to the prior exam. 7. Previously noted proximal left ureteral calculus is not seen on this examination. No calcificati on is seen along the visualized course of the left ureter. The distal left ureter is obscured and un able to be evaluated. However, there is no left-sided hydronephrosis present. 8. Remote fractures involving the left iliac bone. 9. Suggested mild thickening involving the gastric antrum and pylorus of the stomach which could be related to incomplete distention, but this was also present on the prior exam. Depending on clinical concern, endoscopy may be helpful. POS: SALVATORE
[2018-06-10] MEDS ORDERED: Diphenoxylate HCl/Atropine Tablet PO PRN (17:45)
--- NOTE | 2018-06-10 18:52 | PRG ---
DATE OF SERVICE: 06/10/2018 SUBJECTIVE: Ms. Jauregui's diarrhea has improved. She states she had only one loose stool this morning. She felt she was not any better early, but now she feels she is doing much better. OBJECTIVE: VITAL SIGNS: Temperature 97.5, pulse 75, blood pressure 136/80. LUNGS: Clear. HEART: Regular rate and rhythm. ABDOMEN: Soft and nontender. EXTREMITIES: She has deformities from chronic RA and has cushingoid features. CAT scan revealed no severe signs of colitis. RECOMMENDATIONS: Advance diet. Lomotil p.r.n. Continue probiotics. Continue empiric treatment for C. diff. MTDD
[2018-06-10] MEDS: ALPRAZolam 0.25 MG TAB PO SCH (20:32)
[2018-06-11] MEDS: Morphine 2 MG/ML SYRINGE SLOW IVP PRN ×4 (02:41→21:58)
[2018-06-11] MEDS: Sodium Chloride 0.9% 1,000 ML IV SCH ×2 (02:41→16:13)
[2018-06-11] MEDS: Acetaminophen 325 MG TAB PO PRN ×3 (02:45→21:58)
[2018-06-11] MEDS: Enoxaparin Sodium 40 MG/0.4 ML SYRINGE SC SCH (07:56)
[2018-06-11] MEDS: Multivit, Therapeutic 1 TAB PO SCH (07:57)
[2018-06-11] MEDS: Hydroxychloroquine Sulfate 200 MG TAB PO SCH (07:57)
[2018-06-11] MEDS: predniSONE 5 MG TAB PO SCH (07:57)
[2018-06-11] MEDS: Calcium Carbonate + Vit D 1 TAB PO SCH ×2 (07:57→16:09)
[2018-06-11] MEDS: Gemfibrozil 600 MG TAB PO SCH ×2 (07:57→16:09)
[2018-06-11] MEDS: Lactinex Tablet PO SCH (07:58)
[2018-06-11] MEDS: Saccharomyces boulardii 250 MG CAP PO SCH (07:58)
[2018-06-11] MEDS: Nystatin 500,000 UNITS/5 ML UDCUP SSW SCH ×4 (07:58→20:30)
[2018-06-11] MEDS: Vancomycin HCl 25 MG/ML Oral PO SCH ×4 (07:59→20:30)
[2018-06-11 10:21] LABS: Anion Gap 9 mmol/L (10-20); BUN (Urea Nitrogen) 6 mg/dL (9.8-20.1); Calc. Creatinine Clearance 57 mL/min (70-130); Calcium 8.4 mg/dL (7.8-10.44); Carbon Dioxide 21 mmol/L (23-31); Chloride 112 mmol/L (98-107); Estimated GFR-MDRD Greater than 90; Glucose 114 mg/dL (83-110); Potassium 3.8 mmol/L (3.5-5.1); Sodium 138 mmol/L (136-145)
--- NOTE | 2018-06-11 16:53 | PDOC.PN ---
- Subjective Encounter Start Date: 06/11/18 Encounter Start Time: 12:00 Subjective: pt up in bed feels much better today - Objective Resuscitation Status: Resuscitation Status FULL:Full Resuscitation Vital Signs & Weight: Vital Signs (12 hours) Temp Pulse Resp BP BP Pulse Ox 06/11/18 08:00 94 L 06/11/18 07:30 97.7 F 75 18 136/65 94 L 06/11/18 04:54 98.3 F 81 20 146/87 H 94 L Weight Admit Weight 88 lb 6.4 oz Weight 88 lb 6.4 oz I&O: 06/10/18 06/11/18 06/12/18 06:59 06:59 06:59 Intake Total 1570 2705 480 Balance 1570 2705 480 Result Diagrams: 06/09/18 04:29 06/11/18 09:43 Phys Exam - Physical Examination Respiratory: no wheezing, no rales, no rhonchi, wheezing present, clear to auscultation bilateral Cardiovascular: RRR, no significant murmur, no rub, gallop, irregular Gastrointestinal: soft, non-tender, no distention, positive bowel sounds Musculoskeletal: no edema, pulses present, edema present Dx/Plan (1) Diarrhea Code(s): R19.7 - DIARRHEA, UNSPECIFIED Status: Acute Comment: antigen +ve. toxin -ve. Pt improved with enteral vancomycin and IV metronidazole, will continue. (2) UTI (urinary tract infection) Status: Acute Comment: E. coli sensitive to fluoroquinolones, continue levofloxacin (3) Rheumatoid arthritis Code(s): M06.9 - RHEUMATOID ARTHRITIS, UNSPECIFIED Status: Acute - Plan will continue abx -: spoke with gi yest and imodium stated -: ct abd/pel no acute changes mild thick mid left transvese colon -: pt's diarrhea is better, most likely non infectious -: tsh normal * . Review of Systems - Review of Systems Respiratory: negative: Cough, Dry, Shortness of Breath, Hemoptysis, SOB with Excertion, Pleuritic Pain, Sputum, Wheezing Cardiovascular: negative: chest pain, palpitations, orthopnea, paroxysmal nocturnal dyspnea, edema, light headedness, other Gastrointestinal: negative: Nausea, Vomiting, Abdominal Pain, Diarrhea, Constipation, Melena, Hematochezia, Other Genitourinary: negative: Dysuria, Frequency, Incontinence, Hematuria, Retention , Other - Medications/Allergies Allergies/Adverse Reactions: Allergies Allergy/AdvReac Type Severity Reaction Status Date / Time cephalexin monohydrate Allergy Severe Anaphylaxis Verified 12/08/15 12:55 [From Keflex] Medications: Current Medications Acetaminophen (Tylenol) 650 mg PO Q4H PRN PRN Reason: Headache/Fever or Pain Last Admin: 06/11/18 13:29 Dose: 650 mg Acetaminophen (Tylenol) 650 mg [place] Q4H PRN PRN Reason: Headache/Fever or Pain Acidophilus (Floranex) 1 tab PO DAILY [facility] Last Admin: 06/11/18 07:58 Dose: 1 tab Alprazolam (Xanax) 0.25 mg PO HS [facility] Last Admin: 06/10/18 20:32 Dose: 0.25 mg Calcium/Vitamin D (Caltrate 600 + Vit D) 1 tab PO BID-[facility] Last Admin: 06/11/18 16:09 Dose: 1 tab Cholecalciferol (Vitamin D3) 5,000 units PO DAILY [facility] Last Admin: 06/11/18 07:56 Dose: 5,000 units Diphenoxylate HCl/Atropine (Lomotil) 1 tab PO Q6H PRN PRN Reason: Diarrhea/Loose Stools Enoxaparin Sodium (Lovenox) 40 mg SC 0900 [facility] Last Admin: 06/11/18 07:56 Dose: 40 mg Gemfibrozil (Lopid) 600 mg PO BID-AC [facility] Last Admin: 06/11/18 16:09 Dose: 600 mg Hydroxychloroquine Sulfate (Plaquenil) 400 mg PO DAILY [facility] Last Admin: 06/11/18 07:57 Dose: 400 mg Sodium Chloride (Normal Saline 0.9%) 1,000 mls @ 70 mls/hr IV .[id number] [facility] Last Admin: 06/11/18 16:13 Dose: 1,000 mls Levofloxacin (Levaquin) 250 mg PO 2100 [facility] Last Admin: 06/10/18 20:32 Dose: 250 mg Morphine Sulfate (Morphine) 2 mg SLOW IVP Q6H PRN PRN Reason: Pain Last Admin: 06/11/18 16:07 Dose: 2 mg Multivitamins (Theragran) 1 tab PO DAILY [facility] Last Admin: 06/11/18 07:57 Dose: 1 tab Nystatin (Mycostatin) 500,000 units SSW QID [facility] Last Admin: 06/11/18 16:09 Dose: 500,000 units Prednisone (Prednisone) 5 mg PO QAM-WM [facility] Last Admin: 06/11/18 07:57 Dose: 5 mg Saccharomyces Boulardii (Florastor) 250 mg PO DAILY [facility] Last Admin: 06/11/18 07:58 Dose: 250 mg Sodium Chloride (Flush - Normal Saline) 10 ml IVF Q12HR [facility] Last Admin: 06/11/18 07:58 Dose: 10 ml Sodium Chloride (Flush - Normal Saline) 10 ml IVF PRN PRN PRN Reason: Saline Flush Vancomycin HCl (First Vancomycin) 125 mg PO QID [facility] Last Admin: 06/11/18 16:09 Dose: 125 mg
--- NOTE | 2018-06-11 18:53 | PRG ---
DATE OF SERVICE: 06/11/2018 REASON FOR CONSULTATION: Diarrhea. SUBJECTIVE: The patient states that she is doing much better this morning with no further episodes o f abdominal pain. She also states that she had one semi-solid bowel movement earlier today that is i ncreasing in terms of its solid consistency, but not quite solid yet. Otherwise, she denies any naus ea, vomiting, fevers, chills, abdominal pain, constipation, or GI bleeding. OBJECTIVE: VITAL SIGNS: Temperature 97.7, pulse 75, blood pressure 136/65, respiratory rate 18, satting 94% on room air. GENERAL: The patient is lying in bed in no acute distress. Alert and oriented x4. CARDIOVASCULAR: Regular rate and rhythm. RESPIRATORY: Clear to auscultation bilaterally. ABDOMEN: Normoactive bowel sounds. Soft, nontender, nondistended. EXTREMITIES: No cyanosis, clubbing, or edema. LABORATORY DATA: No current labs are available for review. IMAGING DATA: No current GI imaging is available for review. ASSESSMENT AND PLAN: The patient is a 73-year-old female with past medical history of severe rheumat oid arthritis with multiple prior surgeries, chronic kidney disease, cervical radiculopathy, hyperlip idemia, and pancreatitis presenting with complaints of diarrhea. Diarrhea. The patient initially presented to the hospital with increased frequency of watery bowel m ovements in addition to increased abdominal pain, nausea, and vomiting. Infectious stool studies wer e negative for obvious pathogen; however, the C. diff PCR testing came back positive for the antigen, but negative for presence of toxin. In any case, she was treated as an infectious diarrhea with tasia cement on oral vancomycin for C. difficile infection, and after being placed on this regimen, she had complete resolution of her abdominal pain, nausea, and vomiting as well as solidification of her sto ols over the last 48 to 72 hours. She has been able to tolerate a diet thus far without any problems . RECOMMENDATIONS: 1. We would continue current antibiotics with oral vancomycin and Flagyl, although could consider di scontinuation of Flagyl on discharge with continuation of oral vancomycin for a total therapy of 2 we eks. 2. We would continue probiotic. 3. Can continue Lomotil as needed for diarrhea. 4. We would continue current diet. We will continue to follow. Please call with any questions.
[2018-06-11] MEDS: ALPRAZolam 0.25 MG TAB PO SCH (20:30)
[2018-06-12] MEDS: Acetaminophen 325 MG TAB PO PRN ×4 (02:55→21:27)
[2018-06-12] MEDS: Morphine 2 MG/ML SYRINGE SLOW IVP PRN ×3 (04:20→21:26)
[2018-06-12 04:43] LABS: #Eosinphils 0.2 thou/uL (0.0-0.7); #Lymphocytes 1.7 thou/uL (1.20-3.40); #Monocytes 0.5 thou/uL (0.11-0.59); %Basophils 0.6 % (0.0-1.0); %Eosinophils 3.3 % (0.0-10.0); %Lymphocytes 31.4 % (21.0-51.0); %Monocytes 9.4 % (0.0-10.0); %Neutrophils 55.3 % (42.0-75.0); Hemoglobin 9.9 g/dL (12.0-16.0); Mean Corpuscular HGB CONC 31.1 g/dL (32.0-36.0); Mean Corpuscular Hemoglobin 29.7 pg (27.0-31.0); Mean Corpuscular Volume 95.4 fL (78.0-98.0); Mean Platelet Volume 7.1 fL (7.4-10.4); Platelet Count 334 thou/uL (130-400); RBC Distribution Width 16.4 % (11.5-14.5); Red Blood Cell (RBC) Count 3.34 mill/uL (4.20-5.40); White Blood Cell (WBC) Count 5.3 thou/uL (4.8-10.8)
[2018-06-12 05:05] LABS: Anion Gap 9 mmol/L (10-20); BUN (Urea Nitrogen) 6 mg/dL (9.8-20.1); Calc. Creatinine Clearance 65 mL/min (70-130); Calcium 8.8 mg/dL (7.8-10.44); Carbon Dioxide 23 mmol/L (23-31); Chloride 110 mmol/L (98-107); Estimated GFR-MDRD Greater than 90; Glucose 91 mg/dL (83-110); Potassium 4.3 mmol/L (3.5-5.1); Sodium 138 mmol/L (136-145)
[2018-06-12] MEDS: Sodium Chloride 0.9% 1,000 ML IV SCH ×2 (08:32→21:35)
[2018-06-12] MEDS: Hydroxychloroquine Sulfate 200 MG TAB PO SCH (08:33)
[2018-06-12] MEDS: predniSONE 5 MG TAB PO SCH (08:33)
[2018-06-12] MEDS: Saccharomyces boulardii 250 MG CAP PO SCH (08:33)
[2018-06-12] MEDS: Multivit, Therapeutic 1 TAB PO SCH (08:33)
[2018-06-12] MEDS: Lactinex Tablet PO SCH (08:33)
[2018-06-12] MEDS: Gemfibrozil 600 MG TAB PO SCH ×2 (08:33→16:23)
[2018-06-12] MEDS: Enoxaparin Sodium 40 MG/0.4 ML SYRINGE SC SCH (08:33)
[2018-06-12] MEDS: Calcium Carbonate + Vit D 1 TAB PO SCH ×2 (08:33→16:23)
[2018-06-12] MEDS: Nystatin 500,000 UNITS/5 ML UDCUP SSW SCH ×4 (09:25→20:16)
[2018-06-12] MEDS: Vancomycin HCl 25 MG/ML Oral PO SCH ×4 (09:48→20:16)
--- NOTE | 2018-06-12 12:12 | PQF ---
CLINICAL DOCUMENTATION IMPROVEMENT CLARIFICATION FORM: ICD-10 Updated PLEASE DO AN ADDENDUM TO THE PROGRESS NOTE WITH ANY DOCUMENTATION UPDATES OR ADDITIONS AND CARRY THROUGH TO DC SUMMARY. THANK YOU. DATE: 06/12/18 ATTN: Dr. Jameson Please exercise your independent, professional judgment in responding to the clarification form. Clinical indicators are provided on the bottom of this form for your review Please check appropriate box(s): Conflicting documentation was noted in the Medical Record, please clarify if patient is being treated/monitored for: [ ] Antibiotic-associated diarrhea. [ ] Infectious diarrhea due to [ ] Noninfectious diarrhea. [ ] Other diagnosis [ X ] Unable to determine In addition, please specify: Present on Admission (POA): [ X ] Yes [ ] No [ ] Unable to determine For continuity of documentation, please document condition throughout progress notes and discharge summary. Thank You. CLINICAL INDICATORS - SIGNS / SYMPTOMS/ LABS GI 06/09: STOOL POSITIVE FOR C. DIFF ANTIGEN, NEGATIVE TOXIN POSITIVE FECAL LACTOFERRIN CHRONIC DIARRHEA & RECURRENT USE OF ANTIBIOTICS. THIS IS LIKELY ANTIBIOTIC-ASSOCIATED DIARRHEA. GI PN 06/10: CONTINUE EMPIRIC TREATMENT OF C. DIFF GI PN 06/11: SHE WAS TREATED AN INFECTIOUS DIARRHEA WITH PLACEMENT ON ORAL VANCOMYCIN FOR C. DIFFICILE INFECTION & AFTER BEING PLACED ON THIS REGIMEN, SHE HAD COMPLETE RESOLUTION OF HER ABDOMINAL PAIN, N /V WELL SOLIDIFICATION OF HER STOOLS OVER THE LAST 48 TO 72 HRS. PN 06/11: PT'S DIARRHEA IS BETTER, MOST LIKELY NON INFECTIOUS RISKS: H&P: ADVANCED RHEUMATOID ARTHRITIS WITH DEFORMITIES. ADRENAL INSUFFICIENCY TREATMENT: CPOE 06/07: VANCOMYCIN 125MG PO QID Thank you, Glory (This form is maintained as a part of the permanent medical record) 2014 [employer] All Rights Reserved Glory Laird RN, BSN [email or web address] Office: [phone] [facility]
--- NOTE | 2018-06-12 17:13 | PDOC.PN ---
- Subjective Encounter Start Date: 06/12/18 Encounter Start Time: 07:40 Pt seen for followup re: UTI. Denies chest pain, shortness of breath, fevers or chills. c/o generalized weakness. Diarrhea improving. - Objective Resuscitation Status: Resuscitation Status FULL:Full Resuscitation MAR Reviewed: Yes Vital Signs & Weight: Vital Signs (12 hours) Temp Pulse Resp BP Pulse Ox 06/12/18 16:11 98.5 F 84 18 164/81 H 95 06/12/18 11:37 98.8 F 83 18 150/82 H 100 06/12/18 08:00 97 06/12/18 07:46 97.8 F 71 18 155/83 H 97 Weight Admit Weight 88 lb 6.4 oz Weight 88 lb 6.4 oz I&O: 06/11/18 06/12/18 06/13/18 06:59 06:59 06:59 Intake Total 2705 720 1300 Balance 2705 720 1300 Result Diagrams: 06/12/18 03:59 06/12/18 03:59 Additional Labs: Labs reviewed by me Phys Exam - Physical Examination Constitutional: NAD HEENT: sclera anicteric Neck: supple Respiratory: clear to auscultation bilateral Cardiovascular: RRR Gastrointestinal: soft severe arthritic changes Neurological: moves all 4 limbs Psychiatric: normal affect Dx/Plan (1) UTI (urinary tract infection) Status: Acute Comment: continue levofloxacin for E. coli UTI (2) Diarrhea Code(s): R19.7 - DIARRHEA, UNSPECIFIED Status: Acute Comment: unable to determine exact etiology. Antibiotic-induced vs. C. diff. Continue vancomycin , flagyl and florastor for now. (3) Adrenal insufficiency Code(s): E27.40 - UNSPECIFIED ADRENOCORTICAL INSUFFICIENCY Status: Chronic Comment: stable (4) Dyslipidemia Code(s): E78.5 - HYPERLIPIDEMIA, UNSPECIFIED Status: Chronic Comment: on gemfibrozil (5) Rheumatoid arthritis Code(s): M06.9 - RHEUMATOID ARTHRITIS, UNSPECIFIED Status: Chronic Qualifiers: Laterality: bilateral Comment: stable, continue Prednisone, Plaquenil - Plan * . Review of Systems - Review of Systems Constitutional: weakness. negative: fever, chills, sweats, malaise Gastrointestinal: Diarrhea. negative: Nausea, Vomiting, Abdominal Pain, Constipation, Melena, Hematochezia - Medications/Allergies Allergies/Adverse Reactions: Allergies Allergy/AdvReac Type Severity Reaction Status Date / Time cephalexin monohydrate Allergy Severe Anaphylaxis Verified 12/08/15 12:55 [From Keflex] Medications: Current Medications Acetaminophen (Tylenol) 650 mg PO Q4H PRN PRN Reason: Headache/Fever or Pain Last Admin: 06/12/18 16:23 Dose: 650 mg Acetaminophen (Tylenol) 650 mg [place] Q4H PRN PRN Reason: Headache/Fever or Pain Acidophilus (Floranex) 1 tab PO DAILY [facility] Last Admin: 06/12/18 08:33 Dose: 1 tab Alprazolam (Xanax) 0.25 mg PO HS [facility] Last Admin: 06/11/18 20:30 Dose: 0.25 mg Calcium/Vitamin D (Caltrate 600 + Vit D) 1 tab PO BID-[facility] Last Admin: 06/12/18 16:23 Dose: 1 tab Cholecalciferol (Vitamin D3) 5,000 units PO DAILY [facility] Last Admin: 06/12/18 08:32 Dose: 5,000 units Diphenoxylate HCl/Atropine (Lomotil) 1 tab PO Q6H PRN PRN Reason: Diarrhea/Loose Stools Enoxaparin Sodium (Lovenox) 40 mg SC 0900 [facility] Last Admin: 06/12/18 08:33 Dose: Not Given Gemfibrozil (Lopid) 600 mg PO BID-AC [facility] Last Admin: 06/12/18 16:23 Dose: 600 mg Hydroxychloroquine Sulfate (Plaquenil) 400 mg PO DAILY [facility] Last Admin: 06/12/18 08:33 Dose: 400 mg Sodium Chloride (Normal Saline 0.9%) 1,000 mls @ 70 mls/hr IV .[id number] [facility] Last Admin: 06/12/18 08:32 Dose: 1,000 mls Levofloxacin (Levaquin) 250 mg PO 2100 [facility] Last Admin: 06/11/18 20:30 Dose: 250 mg Morphine Sulfate (Morphine) 2 mg SLOW IVP Q6H PRN PRN Reason: Pain Last Admin: 06/12/18 13:52 Dose: 2 mg Multivitamins (Theragran) 1 tab PO DAILY [facility] Last Admin: 06/12/18 08:33 Dose: 1 tab Nystatin (Mycostatin) 500,000 units SSW QID [facility] Last Admin: 06/12/18 16:23 Dose: 500,000 units Prednisone (Prednisone) 5 mg PO QAM-WM [facility] Last Admin: 06/12/18 08:33 Dose: 5 mg Saccharomyces Boulardii (Florastor) 250 mg PO DAILY [facility] Last Admin: 06/12/18 08:33 Dose: 250 mg Sodium Chloride (Flush - Normal Saline) 10 ml IVF Q12HR [facility] Last Admin: 06/12/18 08:33 Dose: 10 ml Sodium Chloride (Flush - Normal Saline) 10 ml IVF PRN PRN PRN Reason: Saline Flush Vancomycin HCl (First Vancomycin) 125 mg PO QID [facility] Last Admin: 06/12/18 16:23 Dose: 125 mg
[2018-06-12] MEDS: ALPRAZolam 0.25 MG TAB PO SCH (20:16)
[2018-06-13] MEDS: Morphine 2 MG/ML SYRINGE SLOW IVP PRN ×4 (04:02→21:42)
[2018-06-13] MEDS: Lactinex Tablet PO SCH (08:14)
[2018-06-13] MEDS: Gemfibrozil 600 MG TAB PO SCH ×2 (08:14→16:23)
[2018-06-13] MEDS: Multivit, Therapeutic 1 TAB PO SCH (08:14)
[2018-06-13] MEDS: Nystatin 500,000 UNITS/5 ML UDCUP SSW SCH ×4 (08:14→20:41)
[2018-06-13] MEDS: Saccharomyces boulardii 250 MG CAP PO SCH (08:15)
[2018-06-13] MEDS: Enoxaparin Sodium 40 MG/0.4 ML SYRINGE SC SCH (08:15)
[2018-06-13] MEDS: Vancomycin HCl 25 MG/ML Oral PO SCH ×4 (08:15→20:41)
[2018-06-13] MEDS: Calcium Carbonate + Vit D 1 TAB PO SCH ×2 (08:15→18:19)
[2018-06-13] MEDS: Hydroxychloroquine Sulfate 200 MG TAB PO SCH (08:15)
[2018-06-13] MEDS: predniSONE 5 MG TAB PO SCH (08:15)
[2018-06-13] MEDS: Acetaminophen 325 MG TAB PO PRN ×3 (10:44→21:41)
--- NOTE | 2018-06-13 11:39 | PDOC.PN ---
- Subjective Encounter Start Date: 06/13/18 Encounter Start Time: 08:00 Pt seen for followup re: UTI. Denies chest pain, shortness of breath, fevers or chills. - Objective Resuscitation Status: Resuscitation Status FULL:Full Resuscitation MAR Reviewed: Yes Vital Signs & Weight: Vital Signs (12 hours) Temp Pulse Resp BP BP Pulse Ox 06/13/18 08:00 98.3 F 81 16 143/79 H 94 L 06/13/18 04:00 97.8 F 83 16 168/84 H 96 06/13/18 00:00 97.7 F 81 16 143/86 H 97 Weight Admit Weight 88 lb 6.4 oz Weight 88 lb 6.4 oz I&O: 06/12/18 06/13/18 06/14/18 06:59 06:59 06:59 Intake Total 720 1300 1070 Balance 720 1300 1070 Result Diagrams: 06/12/18 03:59 06/12/18 03:59 Additional Labs: labs reviewed by me Phys Exam - Physical Examination Constitutional: NAD HEENT: moist MMs Neck: supple Respiratory: clear to auscultation bilateral Cardiovascular: RRR Gastrointestinal: soft Neurological: moves all 4 limbs Psychiatric: normal affect, A&O x 3 Dx/Plan (1) UTI (urinary tract infection) Status: Acute Comment: Pt clinically better, discontinue antibiotics tomorrow (2) Diarrhea Code(s): R19.7 - DIARRHEA, UNSPECIFIED Status: Acute Comment: Improving, still having diarrhea but stools more formed. Continue vancomycin, flagyl and florastor for now. (3) Adrenal insufficiency Code(s): E27.40 - UNSPECIFIED ADRENOCORTICAL INSUFFICIENCY Status: Chronic Comment: stable (4) Dyslipidemia Code(s): E78.5 - HYPERLIPIDEMIA, UNSPECIFIED Status: Chronic Comment: continue gemfibrozil (5) Rheumatoid arthritis Code(s): M06.9 - RHEUMATOID ARTHRITIS, UNSPECIFIED Status: Chronic Qualifiers: Laterality: bilateral Comment: stable - Plan * . Review of Systems - Review of Systems Constitutional: weakness. negative: fever, chills, sweats, malaise Gastrointestinal: Diarrhea. negative: Nausea, Vomiting, Abdominal Pain, Constipation, Melena, Hematochezia Genitourinary: negative: Dysuria, Frequency, Incontinence, Hematuria, Retention - Medications/Allergies Allergies/Adverse Reactions: Allergies Allergy/AdvReac Type Severity Reaction Status Date / Time cephalexin monohydrate Allergy Severe Anaphylaxis Verified 12/08/15 12:55 [From Keflex] Medications: Current Medications Acetaminophen (Tylenol) 650 mg PO Q4H PRN PRN Reason: Headache/Fever or Pain Last Admin: 06/13/18 10:44 Dose: 650 mg Acetaminophen (Tylenol) 650 mg [place] Q4H PRN PRN Reason: Headache/Fever or Pain Acidophilus (Floranex) 1 tab PO DAILY [facility] Last Admin: 06/13/18 08:14 Dose: 1 tab Alprazolam (Xanax) 0.25 mg PO HS [facility] Last Admin: 06/12/18 20:16 Dose: 0.25 mg Calcium/Vitamin D (Caltrate 600 + Vit D) 1 tab PO BID-WM [facility] Last Admin: 06/13/18 08:15 Dose: 1 tab Cholecalciferol (Vitamin D3) 5,000 units PO DAILY [facility] Last Admin: 06/13/18 08:14 Dose: 5,000 units Diphenoxylate HCl/Atropine (Lomotil) 1 tab PO Q6H PRN PRN Reason: Diarrhea/Loose Stools Enoxaparin Sodium (Lovenox) 40 mg SC 0900 [facility] Last Admin: 06/13/18 08:15 Dose: Not Given Gemfibrozil (Lopid) 600 mg PO BID-AC [facility] Last Admin: 06/13/18 08:14 Dose: 600 mg Hydroxychloroquine Sulfate (Plaquenil) 400 mg PO DAILY [facility] Last Admin: 06/13/18 08:15 Dose: 400 mg Sodium Chloride (Normal Saline 0.9%) 1,000 mls @ 70 mls/hr IV .[id number] [facility] Last Admin: 06/12/18 21:35 Dose: 1,000 mls Levofloxacin (Levaquin) 250 mg PO 2100 [facility] Last Admin: 06/12/18 20:16 Dose: 250 mg Morphine Sulfate (Morphine) 2 mg SLOW IVP Q6H PRN PRN Reason: Pain Last Admin: 06/13/18 10:22 Dose: 2 mg Multivitamins (Theragran) 1 tab PO DAILY [facility] Last Admin: 06/13/18 08:14 Dose: 1 tab Nystatin (Mycostatin) 500,000 units SSW QID [facility] Last Admin: 06/13/18 08:14 Dose: 500,000 units Prednisone (Prednisone) 5 mg PO QAM-WM [facility] Last Admin: 06/13/18 08:15 Dose: 5 mg Saccharomyces Boulardii (Florastor) 250 mg PO DAILY [facility] Last Admin: 06/13/18 08:15 Dose: 250 mg Sodium Chloride (Flush - Normal Saline) 10 ml IVF Q12HR [facility] Last Admin: 06/13/18 08:16 Dose: Not Given Sodium Chloride (Flush - Normal Saline) 10 ml IVF PRN PRN PRN Reason: Saline Flush Vancomycin HCl (First Vancomycin) 125 mg PO QID [facility] Last Admin: 06/13/18 08:15 Dose: 125 mg
--- NOTE | 2018-06-13 14:18 | PRG ---
DATE OF SERVICE: 06/13/2018 SUBJECTIVE: Ms. Jauregui has only had 1 bowel movement today. She feels she is getting better, althou gh the stool is still very liquidy. OBJECTIVE: VITAL SIGNS: Temperature is 98.8, pulse 83, respirations 18, blood pressure 150/82. GENERAL: She is resting in bed. She is frail. She is in no distress. She is eating. LUNGS: Clear. ABDOMEN: Soft and nontender except for mild left lower quadrant tenderness. LABORATORY STUDIES: White count is 5.3, hemoglobin 9.9, platelet count 334. Electrolytes within nor mal limits. BUN and creatinine and 0.49. ASSESSMENT: Antibiotic-associated diarrhea, likely related to recurrent treatments, antibiotics and her bladder infections, improving. RECOMMENDATIONS: 1. Continue oral vancomycin and probiotic. 2. Regarding the UTI, if it has been treated, then the Levaquin needs to be stopped. She will need to remain on the vancomycin for 2 weeks after the Levaquin has completed. 3. We will follow from a distance. If you need any further assistance in this patient's care, shaye thomas do not hesitate to contact me.
--- NOTE | 2018-06-13 17:25 | PRG ---
DATE OF SERVICE: 06/13/2018 SUBJECTIVE: Ms. Jauregui reports she has had about 1 bowel movement today. Again, it was slightly sof t and loose. She reports that getting out of bed yet. The nurses report that physical therapy has come, but she is something about the bed as her problem. It is too high she states. MEDICATIONS: She continues to be on vancomycin p.o. and Florastor as well as Levaquin. OBJECTIVE: VITAL SIGNS: Temperature is 98, pulse 81, blood pressure 143/79. ABDOMEN: Soft, nontender. LUNGS: Clear. LABORATORY STUDIES: White count 5.3, hemoglobin 9.9, platelet count 334. Sodium 138, potassium 3.4, BUN and creatinine are 6 and 0.49. ASSESSMENT: 1. Antibiotic-associated diarrhea, improved. 2. Urinary tract infection. She has been on 7 days of Levaquin. I have recommended in the hospital to discontinue that unless there is a reason for her to still be on it. She had a pansensitive Esch erichia coli on 06/06/2018. 3. Physical therapy to get her up and ambulating so she can get home. 4. She will be discharged home on probiotics indefinitely and vancomycin 125 q.i.d. for 14 days. martha can follow up Dr. Debora Harrison in the office. At this time, we will sign off. If I can be of any further assistance in her care, please do not hesitate to contact me.
[2018-06-13] MEDS: ALPRAZolam 0.25 MG TAB PO SCH (21:41)
[2018-06-14] MEDS: Sodium Chloride 0.9% 1,000 ML IV SCH ×3 (02:24→16:19)
[2018-06-14] MEDS: Acetaminophen 325 MG TAB PO PRN ×3 (03:07→21:36)
[2018-06-14] MEDS: Morphine 2 MG/ML SYRINGE SLOW IVP PRN ×4 (03:08→21:30)
[2018-06-14] MEDS: Vancomycin HCl 25 MG/ML Oral PO SCH ×2 (08:46→13:04)
[2018-06-14] MEDS: Enoxaparin Sodium 40 MG/0.4 ML SYRINGE SC SCH (08:46)
[2018-06-14] MEDS: Saccharomyces boulardii 250 MG CAP PO SCH (08:47)
[2018-06-14] MEDS: Lactinex Tablet PO SCH (08:47)
[2018-06-14] MEDS: Hydroxychloroquine Sulfate 200 MG TAB PO SCH (08:47)
[2018-06-14] MEDS: Multivit, Therapeutic 1 TAB PO SCH (08:47)
[2018-06-14] MEDS: predniSONE 5 MG TAB PO SCH (08:47)
[2018-06-14] MEDS: Calcium Carbonate + Vit D 1 TAB PO SCH ×2 (08:48→16:19)
[2018-06-14] MEDS: Nystatin 500,000 UNITS/5 ML UDCUP SSW SCH ×4 (08:48→21:24)
[2018-06-14] MEDS: Gemfibrozil 600 MG TAB PO SCH ×2 (08:48→16:18)
--- NOTE | 2018-06-14 10:54 | PDOC.PN ---
- Subjective Encounter Start Date: 06/14/18 Encounter Start Time: 08:20 Pt seen for followup re: diarrhea. Denies chest pain or shortness of breath. Had one loose stool today. - Objective Resuscitation Status: Resuscitation Status FULL:Full Resuscitation MAR Reviewed: Yes Vital Signs & Weight: Vital Signs (12 hours) Temp Pulse Resp BP BP Pulse Ox 06/14/18 08:00 98.0 F 76 16 147/82 H 97 06/14/18 04:00 97.5 F L 76 16 148/81 H 97 06/14/18 00:00 98.7 F 77 18 137/71 96 Weight Admit Weight 88 lb 6.4 oz Weight 88 lb 6.4 oz I&O: 06/13/18 06/14/18 06/15/18 06:59 06:59 06:59 Intake Total 1300 3383 360 Balance 1300 3383 360 Result Diagrams: 06/15/18 04:17 06/15/18 04:17 Additional Labs: Labs reviewed by me Phys Exam - Physical Examination Constitutional: NAD HEENT: moist MMs Neck: supple Respiratory: clear to auscultation bilateral Cardiovascular: RRR Gastrointestinal: soft Neurological: moves all 4 limbs Psychiatric: normal affect Dx/Plan (1) Diarrhea Code(s): R19.7 - DIARRHEA, UNSPECIFIED Status: Acute Comment: Improving, but still having diarrhea. Continue vancomycin, flagyl and florastor for now. (2) Adrenal insufficiency Code(s): E27.40 - UNSPECIFIED ADRENOCORTICAL INSUFFICIENCY Status: Chronic Comment: stable (3) Dyslipidemia Code(s): E78.5 - HYPERLIPIDEMIA, UNSPECIFIED Status: Chronic Comment: on gemfibrozil (4) Rheumatoid arthritis Code(s): M06.9 - RHEUMATOID ARTHRITIS, UNSPECIFIED Status: Chronic Qualifiers: Laterality: bilateral Comment: stable (5) UTI (urinary tract infection) Status: Resolved Comment: Consult ID for recurrent UTIs (pt saw Dr. Guthrie as outpatient) - Plan * . Review of Systems - Review of Systems Constitutional: negative: fever, chills, sweats, weakness, malaise Gastrointestinal: Diarrhea. negative: Nausea, Vomiting, Abdominal Pain, Constipation, Melena, Hematochezia - Medications/Allergies Allergies/Adverse Reactions: Allergies Allergy/AdvReac Type Severity Reaction Status Date / Time cephalexin monohydrate Allergy Severe Anaphylaxis Verified 12/08/15 12:55 [From Keflex] Medications: Current Medications Acetaminophen (Tylenol) 650 mg PO Q4H PRN PRN Reason: Headache/Fever or Pain Last Admin: 06/15/18 09:57 Dose: 650 mg Acetaminophen (Tylenol) 650 mg [place] Q4H PRN PRN Reason: Headache/Fever or Pain Acidophilus (Floranex) 1 tab PO DAILY [facility] Last Admin: 06/15/18 08:35 Dose: 1 tab Alprazolam (Xanax) 0.25 mg PO HS [facility] Last Admin: 06/14/18 21:24 Dose: 0.25 mg Calcium/Vitamin D (Caltrate 600 + Vit D) 1 tab PO BID-WM [facility] Last Admin: 06/15/18 08:35 Dose: 1 tab Cholecalciferol (Vitamin D3) 5,000 units PO DAILY [facility] Last Admin: 06/15/18 08:36 Dose: 5,000 units Ciprofloxacin (Cipro) 250 mg PO BID@0600,2000 [facility] Stop: 06/17/18 23:59 Last Admin: 06/15/18 05:50 Dose: 250 mg Diphenoxylate HCl/Atropine (Lomotil) 1 tab PO Q6H PRN PRN Reason: Diarrhea/Loose Stools Enoxaparin Sodium (Lovenox) 40 mg SC 0900 [facility] Last Admin: 06/15/18 08:37 Dose: Not Given Gemfibrozil (Lopid) 600 mg PO BID-AC [facility] Last Admin: 06/15/18 08:37 Dose: 600 mg Hydroxychloroquine Sulfate (Plaquenil) 400 mg PO DAILY [facility] Last Admin: 06/15/18 08:37 Dose: 400 mg Sodium Chloride (Normal Saline 0.9%) 1,000 mls @ 70 mls/hr IV .[id number] [facility] Last Admin: 06/15/18 05:50 Dose: 1,000 mls Morphine Sulfate (Morphine) 2 mg SLOW IVP Q6H PRN PRN Reason: Pain Last Admin: 06/15/18 09:56 Dose: 2 mg Multivitamins (Theragran) 1 tab PO DAILY [facility] Last Admin: 06/15/18 08:37 Dose: 1 tab Nystatin (Mycostatin) 500,000 units SSW QID [facility] Last Admin: 06/15/18 08:38 Dose: 500,000 units Prednisone (Prednisone) 5 mg PO QAM-WM [facility] Last Admin: 06/15/18 08:35 Dose: 5 mg Saccharomyces Boulardii (Florastor) 250 mg PO DAILY [facility] Last Admin: 06/15/18 09:56 Dose: 250 mg Sodium Chloride (Flush - Normal Saline) 10 ml IVF Q12HR [facility] Last Admin: 06/15/18 08:39 Dose: Not Given Sodium Chloride (Flush - Normal Saline) 10 ml IVF PRN PRN PRN Reason: Saline Flush
--- NOTE | 2018-06-14 20:21 | CON ---
DATE OF CONSULTATION: 06/14/2018 REASON: Diarrhea, vomiting, fever, neutrophilia, abnormal urinalysis. HISTORY OF PRESENT ILLNESS: This is a 73-year-old, known to me, from clinic visits with recurrent UT Is and a history of rheumatoid arthritis with severe polyarticular involvement and deformities, signi ficant functional impairment, who has had recurrent UTIs with cystitis for many years now. I have se en her in the clinic and she has been treated in the past, and now she presents with nausea, vomiting , diarrhea. She also has a history of C. difficile colitis in the past. She developed some abdomina l cramps and temperature of 101. Did not have any dysuria. Currently, the diarrhea is improving. S he denies any headaches, no visual symptoms, sore throat, odynophagia, or dysphagia, no dyspnea or ch est pain, no abdominal pain. Past medical history includes severe rheumatoid arthritis with polyarti cular deformities and functional impairment, recurrent cystitis with various Enterobacteriaceae in e past. Recently, she had been given a course of Bactrim for 3 weeks, which did not help according t o patient. It is not very clear if she truly had UTI symptoms such as dysuria or not at this time. I had given her a course of ampicillin for 4 weeks. PAST MEDICAL HISTORY: Advanced rheumatoid arthritis with multiple deformities, cervical radiculopath y, urinary incontinence, some element of urinary retention, recurrent UTIs with multiple antral patho gens, adrenal insufficiency. PAST SURGICAL HISTORY: Various orthopedic surgeries, cervical laminectomy, hematoma evacuation. FAMILY HISTORY: Noncontributory. SOCIAL HISTORY: Never smoker. ALLERGIES: KEFLEX. SOCIAL HISTORY: , lives in town. CURRENT MEDICATIONS: Tylenol, Flomax, Xanax, Caltrate, vitamin D, Lomotil, Lovenox, Lopid, Plaquenil , morphine, Theragran, Mycostatin, prednisone, Florastor, vancomycin oral. PHYSICAL EXAMINATION: VITAL SIGNS: T-max 98.6, BP 147/82, pulse 76. SKIN EXAM: No areas of skin breakdown. She has a peripheral IV access. GENERAL: She is voiding into diaper. Awake, oriented, sitting by the bedside. HEENT: Ocular movements are conjugate. Oral cavity not remarkable. NECK: Supple. LUNGS: With symmetric clear breath sounds. HEART: S1 and S2, regular rate without murmurs. ABDOMEN: Soft and not tender. No bladder distention, multiple joint deformities, but no acute joint inflammatory process noted. Able to move extremities with limitations from her joint deformities. LABORATORY DATA: White cell count 13,000, down to 5.3; hemoglobin 9.9; platelets 334 with a normal d ifferential. Chemistry with sodium 138, creatinine 0.49, AST 54, ALT 21, alkaline phosphatase 140, t otal bilirubin 0.6. Microbiology: E. coli from urine culture from 06/06/2018 with resistance to thi rd generation cephalosporins, susceptibility to quinolones and nitrofurantoin, resistance to Bactrim. There is a C. difficile test from 06/14/2018 with antigen and toxin negative. There is a C. diffic ile test from 06/06/2018 with antigen positive, but toxin negative by PCR. ASSESSMENT: 1. Severe rheumatoid arthritis with multiple deformities. 2. Recurrent urinary tract infections with incomplete bladder emptying. 3. Cystitis with extended-spectrum beta-lactamase Escherichia coli, which have susceptibility to esmer nolones. 4. Positive Clostridium difficile antigen, but negative toxin test. DISCUSSION: The most likely scenario is urinary tract infection with cystitis, but not invasive feat ures. The patient has diarrhea, but C. difficile test for toxin was negative and I would recommend t o discontinue C. difficile treatment at this point in time. Transition her to oral quinolone for dis charge planning from here on for attempt management with preemptive short course of oral antimicrobia l therapy and self-administered for recurrence of cystitis-like symptoms.
[2018-06-14] MEDS: Cipro 250 MG TAB PO SCH (20:38)
[2018-06-14] MEDS: ALPRAZolam 0.25 MG TAB PO SCH (21:24)
[2018-06-15] MEDS: Morphine 2 MG/ML SYRINGE SLOW IVP PRN ×2 (03:30→09:56)
[2018-06-15] MEDS: Acetaminophen 325 MG TAB PO PRN ×3 (03:31→14:00)
[2018-06-15 05:14] LABS: #Eosinphils 0.1 thou/uL (0.0-0.7); #Lymphocytes 1.6 thou/uL (1.20-3.40); #Monocytes 0.4 thou/uL (0.11-0.59); #Neutrophils 2.2 thou/uL (1.40-6.50); %Basophils 0.1 % (0.0-1.0); %Eosinophils 2.3 % (0.0-10.0); %Lymphocytes 36.7 % (21.0-51.0); %Monocytes 9.8 % (0.0-10.0); %Neutrophils 51.1 % (42.0-75.0); Hemoglobin 9.6 g/dL (12.0-16.0); Mean Corpuscular HGB CONC 30.6 g/dL (32.0-36.0); Mean Corpuscular Hemoglobin 29.4 pg (27.0-31.0); Mean Corpuscular Volume 95.8 fL (78.0-98.0); Mean Platelet Volume 7.1 fL (7.4-10.4); Platelet Count 290 thou/uL (130-400); RBC Distribution Width 15.8 % (11.5-14.5); Red Blood Cell (RBC) Count 3.27 mill/uL (4.20-5.40); White Blood Cell (WBC) Count 4.4 thou/uL (4.8-10.8)
[2018-06-15 05:26] LABS: Anion Gap 11 mmol/L (10-20); BUN (Urea Nitrogen) 12 mg/dL (9.8-20.1); Calc. Creatinine Clearance 51 mL/min (70-130); Calcium 8.7 mg/dL (7.8-10.44); Carbon Dioxide 23 mmol/L (23-31); Chloride 109 mmol/L (98-107); Estimated GFR-MDRD Greater than 90; Glucose 94 mg/dL (83-110); Potassium 4.6 mmol/L (3.5-5.1); Sodium 138 mmol/L (136-145)
[2018-06-15] MEDS: Cipro 250 MG TAB PO SCH (05:50)
[2018-06-15] MEDS: Sodium Chloride 0.9% 1,000 ML IV SCH (05:50)
[2018-06-15 07:44] VITALS: TEMP 97.7
[2018-06-15] MEDS: Lactinex Tablet PO SCH (08:35)
[2018-06-15] MEDS: Calcium Carbonate + Vit D 1 TAB PO SCH (08:35)
[2018-06-15] MEDS: predniSONE 5 MG TAB PO SCH (08:35)
[2018-06-15] MEDS: Enoxaparin Sodium 40 MG/0.4 ML SYRINGE SC SCH (08:37)
[2018-06-15] MEDS: Hydroxychloroquine Sulfate 200 MG TAB PO SCH (08:37)
[2018-06-15] MEDS: Gemfibrozil 600 MG TAB PO SCH (08:37)
[2018-06-15] MEDS: Multivit, Therapeutic 1 TAB PO SCH (08:37)
[2018-06-15] MEDS: Nystatin 500,000 UNITS/5 ML UDCUP SSW SCH ×2 (08:38→14:00)
[2018-06-15] MEDS: Saccharomyces boulardii 250 MG CAP PO SCH (09:56)
[2018-06-15 14:11] VITALS: BP 153/83
--- NOTE | 2018-06-16 01:57 | DIS ---
DATE OF ADMISSION: 06/07/2018 DATE OF DISCHARGE: 06/15/2018 PRIMARY CARE PROVIDER: Washington Munoz MD DISCHARGE DIAGNOSES: 1. Urinary tract infection. 2. Diarrhea, likely antibiotic associated. 3. Dehydration. CONDITION OF PATIENT ON THE DAY OF DISCHARGE: Stable. I assessed Ms. Jauregui on the day of discharge . She denies any chest pain or shortness of breath. Diarrhea has improved. Vital signs are stable. S1 and S2 are heard, regular. Lungs are clear to auscultation bilaterally. DISCHARGE MEDICATIONS: Acetaminophen 1000 mg every 4 hours as needed, Xanax 0.25 mg at bedtime, calc ium carbonate/vitamin D one tablet 2 times a day, vitamin D3 of 5000 units daily, Lopid 600 mg 2 time s a day, lactobacillus 1 capsule daily, prednisone 5 mg daily, ciprofloxacin 250 mg 2 times a day wit h 5 more doses, Plaquenil 400 mg daily, and multivitamins 1 tablet daily. CONSULTATIONS DURING THIS HOSPITALIZATION: Infectious Diseases, Dr. Guthrie and Gastroenterology, Dr. Mcfarlane. HOSPITAL COURSE: Ms. Jauregui is a pleasant 73-year-old lady, who was admitted to [facility] on 06/07/2018 for nausea, vomiting, and diarrhea. Please refer to my history and physi neelima note dated 06/07/2018 for further details. Her nausea and vomiting resolved shortly after admiss ion. She was treated with levofloxacin for urinary tract infection. Urine cultures grew Escherichia coli that was sensitive to amikacin, cefoxitin, ciprofloxacin, levofloxacin, meropenem, nitrofuranto in, and piperacillin/tazobactam; resistant to trimethoprim/sulfamethoxazole, tobramycin, gentamicin, ceftriaxone, ceftazidime, cefepime, ampicillin/sulbactam and ampicillin. Stool Clostridium difficile test was positive for antigen at the time of admission. She was treated with oral vancomycin and intravenous metronidazole, which were discontinued after negative Clostridiu m difficile test on 06/14/2018. She continued to improve clinically. She had a CT scan of the abdomen and pelvis on 06/10/2018, whic h showed small bilateral pleural effusions and atelectasis, postcholecystectomy changes with evidence of intra and extrahepatic biliary ductal dilatation, focal area of apparent thickening involving the mid left transverse colon, likely secondary to peristalsis, stable compression fractures of L2 and L 3 vertebral bodies, remote fractures involving the left iliac bone, mild thickening involving the gas tric antrum and pylorus of the stomach, which could be related to incomplete distention, but was also present on the previous exam and post-surgical change of the loop of small bowel, which is dilated a nd partially fluid filled, but stable when compared to the study from 01/22/2018. She also had a 2D echocardiogram during this hospitalization, which showed normal left ventricular size, left ventricul ar ejection fraction estimated at 55-60%, normal sized left atrium, moderate mitral regurgitation, sc lerotic aortic valve, no significant aortic stenosis or regurgitation, moderate tricuspid regurgitati on, moderately elevated pulmonary artery pressure and no evidence of any pericardial effusion. On the day of discharge, she has sodium 138, potassium 4.6, creatinine 0.62, white count 4400, hemogl obin 9.6, and platelet count 290,000. She had a normal TSH during this admission. Many thanks for allowing me to participate in your patient's care. Please feel free to contact me wi th any questions or concerns. DISCHARGE DESTINATION: Home. TOTAL AMOUNT OF TIME SPENT COORDINATING THIS DISCHARGE: 33 minutes.
== END 2018-06-15 15:00 | disposition home or self-care (01) | DRG 394 ==
LOC: ERS 20:17 → 2SE 06-07 02:04 → T4-A 06-08 11:21
PROVIDERS: ADMIT Internal Medicine; ATTEND Internal Medicine
DX: K52.1 Toxic gastroenteritis and colitis (principal); N39.0 Urinary tract infection, site not specified; E27.40 Unspecified adrenocortical insufficiency; E86.0 Dehydration; M06.9 Rheumatoid arthritis, unspecified; E78.5 Hyperlipidemia, unspecified; Z23 Encounter for immunization; M54.12 Radiculopathy, cervical region; T36.8X5A Adverse effect of other systemic antibiotics, initial encounter; B96.20 Unspecified Escherichia coli [E. coli] as the cause of diseases classified elsewhere; R33.9 Retention of urine, unspecified
CPT/HCPCS: 36415; 36416; 51701; 74177; 80048; 80053; 81001; 81003; 81015; 82550; 82553; 83605; 83630; 83735; 84100; 84443; 84484; 85025; 87040; 87045; 87046; 87077; 87086; 87186; 87324; 87449; 87493; 87899; 90471; 90662; 93005; 93306; 94760; 96361; 96365; 96372; 96375; A4216; A4353; G0008; G8978-GP-CL; G8979-GP-CJ; J1650; J1720; J1956; J2270; J2405; J3475; J7050

== ENCOUNTER 2020-12-30 20:54 | Inpatient (IN) | payer MEDICARE, BC ==
[2020-12-30] MEDS ORDERED: Docusate 100 MG CAP PO PRN (22:11)
[2020-12-30] MEDS ORDERED: Bisacodyl 10 MG SUPP PR PRN (22:11)
[2020-12-30] MEDS ORDERED: Mag-Al 1200 mg/1200 mg/30 ML UDCUP PO PRN (22:11)
[2020-12-30] MEDS ORDERED: Labetalol HCl 100 MG/20 ML VIAL SLOW IVP PRN ×2 (22:11→22:52)
[2020-12-30] MEDS ORDERED: Calcium Carbonate 500 MG ChewTAB PO PRN (22:18)
[2020-12-30] MEDS ORDERED: Acetaminophen 650 MG Suppository PR PRN (22:18)
[2020-12-30] MEDS ORDERED: Acetaminophen 325 MG TAB PO PRN (22:18)
[2020-12-30] MEDS ORDERED: Ondansetron ODT 4 MG TAB PO PRN (22:18)
[2020-12-30] MEDS ORDERED: Senokot S 8.6-50 MG TAB PO PRN (22:18)
[2020-12-30] MEDS ORDERED: Ondansetron PF 4 MG/2 ML Vial IVP PRN (22:18)
[2020-12-30] MEDS ORDERED: hydrALAZINE 20 MG/ML VIAL SLOW IVP PRN (22:51)
[2020-12-30] MEDS: Acetaminophen/Codeine 30-300mg Tablet PO PRN (23:35)
[2020-12-31] MEDS: Hydroxychloroquine Sulfate 200 MG TAB PO SCH (12:46)
[2020-12-31] MEDS: predniSONE 5 MG TAB PO SCH (12:46)
[2020-12-31] MEDS: Gemfibrozil 600 MG TAB PO SCH ×2 (12:46→20:39)
[2020-12-31] MEDS: Acetaminophen/Codeine 30-300mg Tablet PO PRN ×2 (12:47→18:25)
[2020-12-31 14:18] LABS: #Eosinphils 0.1 thou/uL (0.0-0.7); #Lymphocytes 1.2 thou/uL (1.20-3.40); #Monocytes 0.4 thou/uL (0.11-0.59); #Neutrophils 3.2 thou/uL (1.40-6.50); %Basophils 0.6 % (0.0-1.0); %Lymphocytes 23.5 % (21.0-51.0); %Monocytes 8.6 % (0.0-10.0); %Neutrophils 64.3 % (42.0-75.0); Hemoglobin 12.3 g/dL (12.0-16.0); Mean Corpuscular Volume 96.9 fL (78.0-98.0); Mean Platelet Volume 7.4 fL (7.4-10.4); Platelet Count 280 thou/uL (130-400); RBC Distribution Width 12.3 % (11.5-14.5); Red Blood Cell (RBC) Count 3.83 mill/uL (4.20-5.40); White Blood Cell (WBC) Count 5.1 thou/uL (4.8-10.8)
[2020-12-31 14:35] LABS: Anion Gap 15 mmol/L (10-20); BUN (Urea Nitrogen) 28 mg/dL (9.8-20.1); Calc. Creatinine Clearance 45 mL/min (70-130); Calcium 9.1 mg/dL (7.8-10.44); Carbon Dioxide 25 mmol/L (23-31); Chloride 106 mmol/L (98-107); Cholesterol 134 mg/dl (< 200 Desired); Glucose 96 mg/dL (83-110); HDL Cholesterol 66 mg/dL (>60 Neg Risk); LDL Cholesterol, Calculated 56 mg/dL; Magnesium 1.7 mg/dL (1.6-2.6); Potassium 4.5 mmol/L (3.5-5.1); Sodium 141 mmol/L (136-145); Triglycerides 59 mg/dL (Less than 150)
[2020-12-31 15:04] LABS: Thyroid Stimulating Hormone 0.6028 uIU/mL (0.35-4.94)
[2021-01-01] MEDS: Acetaminophen/Codeine 30-300mg Tablet PO PRN (01:02)
[2021-01-01] MEDS: Gemfibrozil 600 MG TAB PO SCH (08:57)
[2021-01-01] MEDS: Hydroxychloroquine Sulfate 200 MG TAB PO SCH (08:57)
[2021-01-01] MEDS: predniSONE 5 MG TAB PO SCH (08:57)
[2021-01-01 11:23] VITALS: TEMP 98.1
[2021-01-01 11:37] VITALS: BP 163/74
[2021-01-01 14:02] LABS: Bacteria/HPF 3+ HPF (None Seen); Bilirubin Negative (Negative); Blood, Urine Negative (Negative); Clarity Turbid (Clear); Glucose, Urine (Dipstick) Normal (Negative); Ketone, Urine Negative (Negative); Leukocyte 500 Leu/uL (Negative); Nitrite Negative (Negative); Protein, Urine (Dipstick) Negative (Neg-Trace); Specific Gravity, Urine 1.011 (1.002-1.036); Urobilinogen Normal mg/dL (Less than 2); WBC/HPF Greater than 50 HPF (0-3); pH, Urine 6.5 (5.0-9.0)
[2021-01-01 14:04] LABS: Urine Culture Reflex No No
[2021-01-01 15:08] VITALS: BMI 16.7
== END 2021-01-01 16:06 | disposition home or self-care (01) | DRG 65 ==
LOC: UNDOADMIN 20:54 → 2NO 20:54 → 2SE 12-31 14:06
PROVIDERS: ADMIT Internal Medicine; ATTEND Internal Medicine
DX: I61.3 Nontraumatic intracerebral hemorrhage in brain stem (principal); E44.1 Mild protein-calorie malnutrition; M06.9 Rheumatoid arthritis, unspecified; H91.93 Unspecified hearing loss, bilateral; E78.5 Hyperlipidemia, unspecified; M48.02 Spinal stenosis, cervical region; I10 Essential (primary) hypertension; D64.9 Anemia, unspecified; F41.9 Anxiety disorder, unspecified; F32.9 Major depressive disorder, single episode, unspecified; E78.1 Pure hyperglyceridemia; Z68.1 Body mass index [BMI] 19.9 or less, adult; Z88.1 Allergy status to other antibiotic agents; Z97.4 Presence of external hearing-aid; Z74.01 Bed confinement status
CPT/HCPCS: 36415; 36416; 57010; 70450; 70551; 71045; 80048; 80053; 80061; 81001; 81003; 81015; 82550; 82553; 82607; 82746; 83605; 83690; 83735; 84443; 84484; 85025; 87077; 87086; 87186; 87635; 93005; 93306; 93880; 95712; 95819; 95957; 96374; J2060; J2405; J7512; U0003; U0005